=== PATIENT | female | born 1985 | race Caucasian/White ===

== ENCOUNTER 2016-03-03 13:05 | Inpatient (IN) | payer MEDICAID ==
[2016-03-03 14:35] LABS: AUTOMATED BASOPHIL 0.5 % (0-2); AUTOMATED LYMPH 7.9 % (17-44); AUTOMATED MONOCYTE 9.9 % (3-10); AUTOMATED NEUTROPHIL 81.7 % (45-76); MPV 9.2 fL (7.4-10.4)
[2016-03-03 14:44] LABS: LEUKOCYTES/URINE NEG (NEGATIVE); NITRITE/URINE NEG (NEGATIVE); URINE OCCULT BLOOD NEG (NEG/TRACE); WBC/URINE 0-2 (0-5)
[2016-03-03 14:47] LABS: BLOOD UREA NITROGEN 13 MG/DL (7-17); CALCIUM 9.4 MG/DL (8.4-10.2); CALCULATED OSMOLALITY 284 MOs/Kg (270-290); CHLORIDE 101 mEq/L (98-107); SODIUM LEVEL 138 mEq/L (137-146)
[2016-03-03 15:07] LABS: GLUCOSE 422 MG/DL (70-99)
[2016-03-03] MEDS ORDERED: NS 1,000 ML IV ONE ×2 (15:10→16:03)
[2016-03-03] MEDS ORDERED: REGULAR INSULIN 100 UNITS/ML - 3 ML VIAL IV ONE (15:10)
--- NOTE | 2016-03-03 15:12 | EDPRACDOC ---
- History of Present Illness HPI: MD NOTE SEEN AND EXAMINED; OLD RECORDS REVIEWED. IVF AND INSULIN DRIP STARTED. CXR ADDED. DR. DE LA CRUZ NOTIFIED FOR ADMISSION <Jere Martinez - Last Filed: 03/03/16 16:10> - General Information Information Source: Patient Mode Of Arrival: Car - History of Present Illness Onset: yesterday HPI: PT STATES HER DAUGHTERS HAVE BEEN SICK WITH N/V/D AND APPROX 1-2 DAYS SHE DEVELOPED IT WELL AND NOTICED HER CBG WAS STAYING ELEVATED AND COULDNT GET IT TO GO DOWN WITH HER SLIDING SCALE INSULIN AT HOME. STATES STILL HAVING N/V. Symptoms Occured: Reports: Spontaneous Duration: Reports: Since Onset Emesis: Reports: Bilious Recent: Reports: None Pain Quality: Reports: Aching, Cramping Pain Severity: Moderate Pain Location: Reports: Diffuse History of: Reports: UTI (once) Associated Signs & Symptoms: Reports: Nausea, Vomiting, Diarrhea, Other ( ELEVATED GLUCOSE) Oral Intake: Decreased Urinary Output: Normal <Kathleen Wilhelm - Last Filed: 03/03/16 16:24> - General Information Chief Complaint: Nausea,Vomiting,Diarrhea Stated Complaint: N/V/D DIABETIC HYPERGLYCEMIC Time Seen by Provider: 03/03/16 15:10 Home Medications: Home Medications Insulin Aspart [Novolog] 10 units SQ .SSI TIDAC #5 pen 12/20/15 Insulin Detemir [Levemir] 25 units SQ HS 03/03/16 Allergies/Adverse Reactions: Allergies Allergy/AdvReac Type Severity Reaction Status Date / Time morphine Allergy RASH, Verified 03/03/16 14:05 SWELLING Penicillins Allergy SWELLING Verified 03/03/16 14:05 ED Past Medical History - History Reviewed Yes Nurses notes reviewed and agree except as marked Travel Outside of [place] in the Last 3 Months?: No - Patient Medical History Respiratory History: Reports: Asthma (inhaler use at home)Comment Only: Pneumonia (3-4 years ago) GI/ History: Reports: Urinary Tract Infection (once) Psychological History: Reports: Anxiety. Denies: Depression, Substance Use Disorder Systemic History: Reports: Diabetes (Type 1. Uses Levemir.), Hypothyroidism ( Very recently diagnosed with hypothyroidism by PCP. Has not yet filled Rx.). Denies: Cancer, Anemia, Lupus Surgical History: Reports: Other ( x2, rectal surgery age 18 to correct traumatic injury, recent TL.) - Family Medical History Reports: Hypertension (mothers), Diabetes (Multiple family members on both maternal and paternal side with DM), Cancer (Multiple family members with various cancers including both grandparents.), Cardiac Disorders (Father with NV.). Denies: Stroke - Social Medical History Smoking Status: Heavy tobacco smoker (5 or more cigarettes/day or daily pipe/ cigar) Social History: Denies: Substance Use Disorder ETOH: None Substance Abuse: None Lives With: Other Lives In: Home <Kathleen Wilhelm - Last Filed: 03/03/16 16:24> EDM Review of Systems - Review of Systems ROS Negative Except as Marked: Yes All systems reviewed and were negative except as marked Constitutional: Weakness. negative: Chills, Fever, Fatigue, Loss of Appetite Eyes: No Symptoms Reported. negative: Redness, Blurred Vision, Double Vision, Discharge, Pain, Light Sensitive, Photophobia Ears: No Symptoms Reported. negative: Pain, Hearing Loss, Drainage, Ear Pulling Throat: No Symptoms Reported. negative: Pain, Swelling Nose: No Symptoms Reported. negative: Congestion, Bleeding, Discharge, Injection, Swelling, Deformity, Ecchymosis, Tender, Abrasion, Laceration Mouth: Dry Mouth. negative: Pain, Drooling Respiratory: No Symptoms Reported. negative: Cough, Brassy Cough, Barky Cough, Shortness of Breath, Wheezing, Hemoptysis Cardiovascular: No Symptoms Reported. negative: Chest Pain, Palpitations, Syncope, Edema, Orthopnea, PND, Skin Mottling, Cyanosis Gastrointestinal: Pain. negative: Constipation, Diarrhea, Formula Intolerance, Melena, Nausea, Vomiting Genitourinary: Frequency, Urgency to urinate. negative: Bleeding, Dysuria, Discharge, Hematuria, , Testicular Pain Neurological: No Symptoms Reported. negative: Headache, Dizziness, Seizure, Numbness, Weakness, Speech Difficulty, Gait Difficulty Musculoskeletal: No Symptoms Reported. negative: Neck, Chestwall, Ribs, Back, Shoulder, Arm, Elbow, Forearm, Wrist, Hand, Pelvis, Hip, Femur, Knee, Leg, Ankle , Foot Integumentary: No Symptoms Reported. negative: Itching, Rash, Bruising, Wound Allergic/Immunologic: No Symptoms Reported. negative: Hives, Itching Hematologic: No Symptoms Reported. negative: Lymphadenopathy, Easy Bruising, Easy Bleeding Endocrine: No Symptoms Reported. negative: Weight Gain, Weight Loss Psychiatric: No Symptoms Reported. negative: Anxiety, Depression, Hallucinations, Insomnia, Suicidal <Kathleen Wilhelm - Last Filed: 03/03/16 16:24> - Physical Exam Last recorded Vital Signs: Last Vital Signs Temp 98.0 F 03/03/16 14:06 Pulse 118 03/03/16 14:06 Resp 22 03/03/16 14:06 BP 126/73 03/03/16 14:06 Pulse Ox 100 03/03/16 14:06 Oxygen Pulse Oxygen Saturation 100 O2 Device Room Air Oxygen Flow Rate Fraction of Inspired Oxygen ( FIO2) <Jere Martinez - Last Filed: 03/03/16 16:10> - Physical Exam Constitutional: No apparent distress, Alert (Awake) Oriented to: Time, Person, Place Last recorded Vital Signs: Last Vital Signs Temp 98.0 F 03/03/16 14:06 Pulse 118 03/03/16 14:06 Resp 22 03/03/16 14:06 BP 126/73 03/03/16 14:06 Pulse Ox 100 03/03/16 14:06 Oxygen Pulse Oxygen Saturation 100 O2 Device Room Air Oxygen Flow Rate Fraction of Inspired Oxygen ( FIO2) - HEENT Head: Normal ( normocephalic) Eye Exam: Normal (PERRL, EOMI, Sclera white) Oropharynx: Normal (Pharynx:Moist without exudate,Gums-no swelling) Tympanic Membrane: Normal ENT EAC: Normal TMJ: Normal Nose: No Symptoms Reported (septum midline) Neck: Normal (FROM, trachea at midline) - Respiratory/Cardiovascular Respiratory: Normal - CTA (BBS clear to auscultation without adventitious sounds ) Cardiovascular: Normal (RRR without murmur, gallop or rub) - GI Auscultation: Normal (NABS) Palpation: Normal (Soft,No rebound or guarding, non distended) Tenderness: Diffuse, Mild Shields's Sign: Negative - Bladder: Normal - Musculoskeletal Back: Normal (Non-Tender) Extremities: Normal (Normal tone, Pulses 2+ No cyanosis or edema, FROM) - Integumentary Skin: Normal, Warm, Dry Lymphatics: Normal (no adenopathy) - Neurologic Memory Impaired: Normal Motor Function: Normal (Normal tone, Pulses 2+ No cyanosis or edema, FROM) Cranial Nerve: Normal (CN II-X11 intact sensation, strength 5/5) Cerebellar: Normal Mood Description: Normal Perception: Normal <Kathleen Wilhelm - Last Filed: 03/03/16 16:24> - Results 03/03/16 14:15 03/03/16 14:15 WBC 10.2 xk/uL (3.8-10.8) 03/03/16 14:15 RBC 5.48 xM/uL (4.20-5.40) H 03/03/16 14:15 Hgb 16.1 g/dL (12.0-16.0) H 03/03/16 14:15 Hct 49.3 % (36-47) H 03/03/16 14:15 MCV 90 fL (81-99) 03/03/16 14:15 MCH 29.3 pg (27-32) 03/03/16 14:15 MCHC 32.6 g/dl (33-36) L 03/03/16 14:15 RDW 13.1 % (11.5-14.5) 03/03/16 14:15 Plt Count 277 xk/uL (130-400) 03/03/16 14:15 MPV 9.2 fL (7.4-10.4) 03/03/16 14:15 Neut % (Auto) 81.7 % (45-76) H 03/03/16 14:15 Lymph % (Auto) 7.9 % (17-44) L 03/03/16 14:15 [place] % (Auto) 9.9 % (3-10) 03/03/16 14:15 Eos % (Auto) 0.0 % (0-5) 03/03/16 14:15 Baso % (Auto) 0.5 % (0-2) 03/03/16 14:15 Absolute Neuts (auto) 8.26 xk/uL (1.7-8.2) H 03/03/16 14:15 Absolute Lymphs (auto) 0.71 xk/uL (0.65-4.75) 03/03/16 14:15 Puncture Site Right radial 03/03/16 15:28 pH 7.070 pH UNITS (7.35-7.45) L* 03/03/16 15:28 pCO2 < 19.0 mmHg (35-45) L* 03/03/16 15:28 pO2 126.0 mmHg (80-100) H 03/03/16 15:28 FiO2 % 21% 03/03/16 15:28 Specimen Drawn By Roude 03/03/16 15:28 Sodium 138 mEq/L (137-146) 03/03/16 14:15 Potassium 4.4 mEq/L (3.5-5.1) 03/03/16 14:15 Chloride 101 mEq/L (98-107) 03/03/16 14:15 Carbon Dioxide 6 mMOL/L (22-33) L* 03/03/16 14:15 Anion Gap 35 mEq/L (8-16) H 03/03/16 14:15 BUN 13 MG/DL (7-17) 03/03/16 14:15 Creatinine 0.70 MG/DL (0.52-1.04) 03/03/16 14:15 Estimated GFR (MDRD) > 60 mL/min (>=60) 03/03/16 14:15 Glucose 422 MG/DL (70-99) H* 03/03/16 14:15 POC Capillary Glucose 399 MG/DL (70-99) H 03/03/16 14:11 Calculated Osmolality 284 MOs/Kg (270-290) 03/03/16 14:15 Lactic Acid 1.7 mEq/L (0.7-2.1) 03/03/16 15:30 Calcium 9.4 MG/DL (8.4-10.2) 03/03/16 14:15 Total Bilirubin 0.9 MG/DL (0.2-1.3) 03/03/16 14:15 AST 27 IU/L (14-36) 03/03/16 14:15 ALT 36 IU/L (9-52) 03/03/16 14:15 Alkaline Phosphatase 124 IU/L (38-126) 03/03/16 14:15 Ammonia < 9.0 umol/L (9.0-30.0) L 03/03/16 14:15 Total Protein 8.0 G/DL (6.3-8.2) 03/03/16 14:15 Albumin 4.7 G/DL (3.5-5.0) 03/03/16 14:15 Urine Color Yellow 03/03/16 14:15 Urine Clarity Clear 03/03/16 14:15 Urine pH 6.0 (5.0-8.0) 03/03/16 14:15 Ur Specific [place] 1.030 (1.003-1.035) 03/03/16 14:15 Urine Protein 2+ (NEG/TRACE) H 03/03/16 14:15 Urine Glucose (UA) 3+ (NEGATIVE) H 03/03/16 14:15 Urine Ketones 3+ (NEGATIVE) H 03/03/16 14:15 Urine Occult Blood Neg (NEG/TRACE) 03/03/16 14:15 Urine Nitrite Neg (NEGATIVE) 03/03/16 14:15 Urine Bilirubin Neg (NEGATIVE) 03/03/16 14:15 Urine Urobilinogen <2.0 MG/DL (0-1) 03/03/16 14:15 Ur Leukocyte Esterase Neg (NEGATIVE) 03/03/16 14:15 Urine RBC 2-5 (0-5) 03/03/16 14:15 Urine WBC 0-2 (0-5) 03/03/16 14:15 Ur Epithelial Cells 2+ 03/03/16 14:15 Urine Bacteria Few (NEG/FEW) 03/03/16 14:15 Urine Mucus Occ (NEG/OCC) 03/03/16 14:15 Urine Yeast Few (NONE) H 03/03/16 14:15 Urine Test Neg (NEGATIVE) 03/03/16 14:15 Lab Results 03/03/16 03/03/16 03/03/16 15:30 15:28 14:15 WBC RBC Hgb Hct MCV MCH MCHC RDW Plt Count MPV Neut % (Auto) Lymph % (Auto) [place] % (Auto) Eos % (Auto) Baso % (Auto) Absolute Neuts (auto) Absolute Lymphs (auto) Puncture Site Right radial pH 7.070 L* pCO2 < 19.0 L* pO2 126.0 H FiO2 % 21% Specimen Drawn By Roude Sodium Potassium Chloride Carbon Dioxide Anion Gap BUN Creatinine Estimated GFR (MDRD) Glucose POC Capillary Glucose Calculated Osmolality Lactic Acid 1.7 Calcium Total Bilirubin AST ALT Alkaline Phosphatase Ammonia Total Protein Albumin Urine Color Urine Clarity Urine pH Ur Specific [place] Urine Protein Urine Glucose (UA) Urine Ketones Urine Occult Blood Urine Nitrite Urine Bilirubin Urine Urobilinogen Ur Leukocyte Esterase Urine RBC Urine WBC Ur Epithelial Cells Urine Bacteria Urine Mucus Urine Yeast Urine Test Neg 03/03/16 03/03/16 03/03/16 14:15 14:15 14:15 WBC 10.2 RBC 5.48 H Hgb 16.1 H Hct 49.3 H MCV 90 MCH 29.3 MCHC 32.6 L RDW 13.1 Plt Count 277 MPV 9.2 Neut % (Auto) 81.7 H Lymph % (Auto) 7.9 L [place] % (Auto) 9.9 Eos % (Auto) 0.0 Baso % (Auto) 0.5 Absolute Neuts (auto) 8.26 H Absolute Lymphs (auto) 0.71 Puncture Site pH pCO2 pO2 FiO2 % Specimen Drawn By Sodium 138 Potassium 4.4 Chloride 101 Carbon Dioxide 6 L* Anion Gap 35 H BUN 13 Creatinine 0.70 Estimated GFR (MDRD) > 60 Glucose 422 H* POC Capillary Glucose Calculated Osmolality 284 Lactic Acid Calcium 9.4 Total Bilirubin 0.9 AST 27 ALT 36 Alkaline Phosphatase 124 Ammonia < 9.0 L Total Protein 8.0 Albumin 4.7 Urine Color Urine Clarity Urine pH Ur Specific [place] Urine Protein Urine Glucose (UA) Urine Ketones Urine Occult Blood Urine Nitrite Urine Bilirubin Urine Urobilinogen Ur Leukocyte Esterase Urine RBC Urine WBC Ur Epithelial Cells Urine Bacteria Urine Mucus Urine Yeast Urine Test 03/03/16 03/03/16 14:15 14:11 WBC RBC Hgb Hct MCV MCH MCHC RDW Plt Count MPV Neut % (Auto) Lymph % (Auto) [place] % (Auto) Eos % (Auto) Baso % (Auto) Absolute Neuts (auto) Absolute Lymphs (auto) Puncture Site pH pCO2 pO2 FiO2 % Specimen Drawn By Sodium Potassium Chloride Carbon Dioxide Anion Gap BUN Creatinine Estimated GFR (MDRD) Glucose POC Capillary Glucose 399 H Calculated Osmolality Lactic Acid Calcium Total Bilirubin AST ALT Alkaline Phosphatase Ammonia Total Protein Albumin Urine Color Yellow Urine Clarity Clear Urine pH 6.0 Ur Specific [place] 1.030 Urine Protein 2+ H Urine Glucose (UA) 3+ H Urine Ketones 3+ H Urine Occult Blood Neg Urine Nitrite Neg Urine Bilirubin Neg Urine Urobilinogen <2.0 Ur Leukocyte Esterase Neg Urine RBC 2-5 Urine WBC 0-2 Ur Epithelial Cells 2+ Urine Bacteria Few Urine Mucus Occ Urine Yeast Few H Urine Test <Jere Martinez - Last Filed: 03/03/16 16:10> - Differential Diagnosis Diarrhea Viral, Food poisoning, Gastroenteritis, Urinary tract infection, Other (SEPSIS, DKA) - Results 03/03/16 14:15 03/03/16 14:15 WBC 10.2 xk/uL (3.8-10.8) 03/03/16 14:15 RBC 5.48 xM/uL (4.20-5.40) H 03/03/16 14:15 Hgb 16.1 g/dL (12.0-16.0) H 03/03/16 14:15 Hct 49.3 % (36-47) H 03/03/16 14:15 MCV 90 fL (81-99) 03/03/16 14:15 MCH 29.3 pg (27-32) 03/03/16 14:15 MCHC 32.6 g/dl (33-36) L 03/03/16 14:15 RDW 13.1 % (11.5-14.5) 03/03/16 14:15 Plt Count 277 xk/uL (130-400) 03/03/16 14:15 MPV 9.2 fL (7.4-10.4) 03/03/16 14:15 Neut % (Auto) 81.7 % (45-76) H 03/03/16 14:15 Lymph % (Auto) 7.9 % (17-44) L 03/03/16 14:15 [place] % (Auto) 9.9 % (3-10) 03/03/16 14:15 Eos % (Auto) 0.0 % (0-5) 03/03/16 14:15 Baso % (Auto) 0.5 % (0-2) 03/03/16 14:15 Absolute Neuts (auto) 8.26 xk/uL (1.7-8.2) H 03/03/16 14:15 Absolute Lymphs (auto) 0.71 xk/uL (0.65-4.75) 03/03/16 14:15 Sodium 138 mEq/L (137-146) 03/03/16 14:15 Potassium 4.4 mEq/L (3.5-5.1) 03/03/16 14:15 Chloride 101 mEq/L (98-107) 03/03/16 14:15 Carbon Dioxide 6 mMOL/L (22-33) L* 03/03/16 14:15 Anion Gap 35 mEq/L (8-16) H 03/03/16 14:15 BUN 13 MG/DL (7-17) 03/03/16 14:15 Creatinine 0.70 MG/DL (0.52-1.04) 03/03/16 14:15 Estimated GFR (MDRD) > 60 mL/min (>=60) 03/03/16 14:15 Glucose 422 MG/DL (70-99) H* 03/03/16 14:15 POC Capillary Glucose 399 MG/DL (70-99) H 03/03/16 14:11 Calculated Osmolality 284 MOs/Kg (270-290) 03/03/16 14:15 Calcium 9.4 MG/DL (8.4-10.2) 03/03/16 14:15 Total Bilirubin 0.9 MG/DL (0.2-1.3) 03/03/16 14:15 AST 27 IU/L (14-36) 03/03/16 14:15 ALT 36 IU/L (9-52) 03/03/16 14:15 Alkaline Phosphatase 124 IU/L (38-126) 03/03/16 14:15 Ammonia < 9.0 umol/L (9.0-30.0) L 03/03/16 14:15 Total Protein 8.0 G/DL (6.3-8.2) 03/03/16 14:15 Albumin 4.7 G/DL (3.5-5.0) 03/03/16 14:15 Urine Color Yellow 03/03/16 14:15 Urine Clarity Clear 03/03/16 14:15 Urine pH 6.0 (5.0-8.0) 03/03/16 14:15 Ur Specific [place] 1.030 (1.003-1.035) 03/03/16 14:15 Urine Protein 2+ (NEG/TRACE) H 03/03/16 14:15 Urine Glucose (UA) 3+ (NEGATIVE) H 03/03/16 14:15 Urine Ketones 3+ (NEGATIVE) H 03/03/16 14:15 Urine Occult Blood Neg (NEG/TRACE) 03/03/16 14:15 Urine Nitrite Neg (NEGATIVE) 03/03/16 14:15 Urine Bilirubin Neg (NEGATIVE) 03/03/16 14:15 Urine Urobilinogen <2.0 MG/DL (0-1) 03/03/16 14:15 Ur Leukocyte Esterase Neg (NEGATIVE) 03/03/16 14:15 Urine RBC 2-5 (0-5) 03/03/16 14:15 Urine WBC 0-2 (0-5) 03/03/16 14:15 Ur Epithelial Cells 2+ 03/03/16 14:15 Urine Bacteria Few (NEG/FEW) 03/03/16 14:15 Urine Mucus Occ (NEG/OCC) 03/03/16 14:15 Urine Yeast Few (NONE) H 03/03/16 14:15 Urine Test Neg (NEGATIVE) 03/03/16 14:15 Lab Results 03/03/16 03/03/16 03/03/16 14:15 14:15 14:15 WBC 10.2 RBC 5.48 H Hgb 16.1 H Hct 49.3 H MCV 90 MCH 29.3 MCHC 32.6 L RDW 13.1 Plt Count 277 MPV 9.2 Neut % (Auto) 81.7 H Lymph % (Auto) 7.9 L [place] % (Auto) 9.9 Eos % (Auto) 0.0 Baso % (Auto) 0.5 Absolute Neuts (auto) 8.26 H Absolute Lymphs (auto) 0.71 Sodium Potassium Chloride Carbon Dioxide Anion Gap BUN Creatinine Estimated GFR (MDRD) Glucose POC Capillary Glucose Calculated Osmolality Calcium Total Bilirubin AST ALT Alkaline Phosphatase Ammonia < 9.0 L Total Protein Albumin Urine Color Urine Clarity Urine pH Ur Specific [place] Urine Protein Urine Glucose (UA) Urine Ketones Urine Occult Blood Urine Nitrite Urine Bilirubin Urine Urobilinogen Ur Leukocyte Esterase Urine RBC Urine WBC Ur Epithelial Cells Urine Bacteria Urine Mucus Urine Yeast Urine Test Neg 03/03/16 03/03/16 03/03/16 14:15 14:15 14:11 WBC RBC Hgb Hct MCV MCH MCHC RDW Plt Count MPV Neut % (Auto) Lymph % (Auto) [place] % (Auto) Eos % (Auto) Baso % (Auto) Absolute Neuts (auto) Absolute Lymphs (auto) Sodium 138 Potassium 4.4 Chloride 101 Carbon Dioxide 6 L* Anion Gap 35 H BUN 13 Creatinine 0.70 Estimated GFR (MDRD) > 60 Glucose 422 H* POC Capillary Glucose 399 H Calculated Osmolality 284 Calcium 9.4 Total Bilirubin 0.9 AST 27 ALT 36 Alkaline Phosphatase 124 Ammonia Total Protein 8.0 Albumin 4.7 Urine Color Yellow Urine Clarity Clear Urine pH 6.0 Ur Specific [place] 1.030 Urine Protein 2+ H Urine Glucose (UA) 3+ H Urine Ketones 3+ H Urine Occult Blood Neg Urine Nitrite Neg Urine Bilirubin Neg Urine Urobilinogen <2.0 Ur Leukocyte Esterase Neg Urine RBC 2-5 Urine WBC 0-2 Ur Epithelial Cells 2+ Urine Bacteria Few Urine Mucus Occ Urine Yeast Few H Urine Test - EKG EKG #1 EKG Time: 15:55 -: Yes EKG interpreted by me Rate: bpm: 111 [place]: Normal Rhythm: ST Block: None Hypertrophy: None ST: Nonsp <Kathleen Wilhelm - Last Filed: 03/03/16 16:24> ED Critical Care Note - Critical Care Note Total Time (mins): 35 <Jere Martinez - Last Filed: 03/03/16 16:10> <Jere Martinez - Last Filed: 03/03/16 16:10> - Departure Education/Counseling Given To: Patient Education/Counseling Given Regarding: Diagnosis, Treatment, Prognosis, Follow Up Decision to Admit Time: 16:23 Decision to admit date: 03/03/16 Decision to admit: from ED - Physician Consulted Hospitalist Time Called: 16:23 Provider Called: Tom De La Cruz <Kathleen Wilhelm - Last Filed: 03/03/16 16:24> - Departure Condition: Serious Final Diagnosis: Nausea and vomiting, Dehydration Diabetic ketoacidosis Qualifiers: Diabetes mellitus type: due to underlying condition Diabetes mellitus complication detail: without coma Qualified Code(s): E08.10 - Diabetes mellitus due to underlying condition with ketoacidosis without coma Instructions: Managing Diabetes During Sick Days (ED), Diabetes and Exercise Referrals: Samy Stern MD [Primary Care Provider] - One Week Forms: Patient Discharge Instructions, ED Discharge Instructions
[2016-03-03] MEDS: NS 1,000 ML IV SCH ×2 (15:19→17:30)
[2016-03-03] MEDS ORDERED: HYDROmorphone 1 MG INJECTION IV ONE (15:29)
[2016-03-03] MEDS ORDERED: LORAZEPAM 2 MG/ML VIAL IV ONE (15:29)
[2016-03-03] MEDS ORDERED: ONDANSETRON HCL 4 MG/2 ML VIAL IV ONE (15:29)
[2016-03-03 15:34] LABS: ABG Draw Site Right Radial; ALLEN'S TEST PASS; PCO2 < 19.0 mmHg (35-45)
[2016-03-03] MEDS: Insulin, Regular 100 UNITS in NS 99 ML IV SCH ×2 (16:04)
[2016-03-03] MEDS ORDERED: SIMETHICONE 80 MG TAB PO PRN (16:47)
[2016-03-03] MEDS ORDERED: ONDANSETRON HCL 4 MG/2 ML VIAL IV PRN (16:47)
[2016-03-03] MEDS ORDERED: TEMAZEPAM 15 MG CAP PO PRN (16:47)
[2016-03-03] MEDS ORDERED: BENZONATATE 100 MG PERLES PO PRN (16:47)
[2016-03-03] MEDS ORDERED: DOCUSATE-SENNA CONCENTRATE TAB PO PRN (16:47)
[2016-03-03] MEDS ORDERED: METOCLOPRAMIDE 10 MG/2 ML VIAL IV PRN (16:47)
[2016-03-03] MEDS ORDERED: DEXTROSE 25 GM/50 ML PFS IV PRN (16:47)
[2016-03-03] MEDS ORDERED: ACETAMINOPHEN 325 MG/TAB TABLET PO PRN (16:47)
[2016-03-03] MEDS ORDERED: ACETAMINOPHEN 650 MG SUPP PR PRN (16:47)
[2016-03-03] MEDS ORDERED: Insulin, Regular 100 UNITS in NS 99 ML IV SCH ×2 (17:00)
[2016-03-03] MEDS ORDERED: D5W/NS/KCl 20 mEq 1,000 ML IV SCH (17:00)
[2016-03-03] MEDS ORDERED: REGULAR INSULIN 100 UNITS/ML - 3 ML VIAL SQ SCH (17:00)
[2016-03-03] MEDS ORDERED: NS/KCl 20 mEq 1,000 ML IV SCH (17:00)
[2016-03-03] MEDS ORDERED: DKA ELECTROLYTE PROTOCOL SCH (17:00)
[2016-03-03] MEDS ORDERED: NS 1,000 ML IV SCH (17:00)
--- NOTE | 2016-03-03 17:24 | DIRPT ---
CLINICAL DATA: Shortness of breath and cough for 1 week. EXAM: CHEST 2 VIEW COMPARISON: Chest radiograph 09/23/2015. FINDINGS: Stable cardiac mediastinal contours. No consolidative pulmonary opacities. No pleural effusion or pneumothorax. Regional skeleton is unremarkable. IMPRESSION: No active cardiopulmonary disease. Electronically Signed By: Quinn Grider M.D. On: 03/03/2016 17:21
[2016-03-03 17:44] LABS: LEUKOCYTES/URINE NEG (NEGATIVE); NITRITE/URINE NEG (NEGATIVE); URINE OCCULT BLOOD 1+ (NEG/TRACE); WBC/URINE 0-2 (0-5)
[2016-03-03 17:54] LABS: BLOOD UREA NITROGEN 12 MG/DL (7-17); CALCIUM 8.2 MG/DL (8.4-10.2); CALCULATED OSMOLALITY 276 MOs/Kg (270-290); CHLORIDE 106 mEq/L (98-107); GLUCOSE 244 MG/DL (70-99); SODIUM LEVEL 139 mEq/L (137-146)
[2016-03-03] MEDS: ENOXAPARIN 40 MG/0.4 ML PFS SQ SCH (18:40)
--- NOTE | 2016-03-03 19:18 | HISTPHYS ---
- Chief Complaint nausea & vomiting - History of Present Illness Fany Trevino is a 30 year old woman with type 1 diabetes mellitus who presents with a two day history of nausea and vomiting. She states that her children have been sick recently with viral gastroenteritis type complaints, and of course, she has been caring for them. They seemed to recover after 24 hours, and she was hoping she would also, but instead she continued to vomit. She omitted her insulin because she was unable to eat or drink anything, and when she arrived to the ED today, her blood sugar was 422 with a pH of 7.07 and a serum bicarb level of 6. She is admitted for treatment of diabetic ketoacidosis. - Medical History Cardiac History: Reports: No Significant History Respiratory History: Reports: Asthma GI/ History: Reports: Urinary Tract Infection, Gastroesophageal Reflux Musculoskeletal History: Reports: No Significant History Systemic History: Reports: Diabetes, Hypothyroidism Neurological History: Reports: No Significant History Psychological History: Reports: Anxiety. Denies: Depression - Surgical History Reports: Other ( x2, rectal surgery age 18 to correct traumatic injury , recent TL.) - Medictions/Allergies Allergies morphine Allergy (Verified 03/03/16 14:05) RASH, SWELLING Penicillins Allergy (Verified 03/03/16 14:05) SWELLING Current Medication List: Reviewed Home Medications Insulin Aspart [Novolog] 10 units SQ .SSI TIDAC #5 pen 12/20/15 Insulin Detemir [Levemir] 25 units SQ HS 03/03/16 - Family History Reports: Hypertension (mothers), Diabetes (Multiple family members on both maternal and paternal side with DM), Cancer (Multiple family members with various cancers including both grandparents.), Cardiac Disorders (Father with [place].). Denies: Stroke - Social History Travel Outside of [place] in the Last 3 Months?: No Lives: With Family Smoking Status: Heavy tobacco smoker (5 or more cigarettes/day or daily pipe/ cigar) Social History: Denies: Alcohol Use - Review of Systems Constitutional: Fatigue, Loss of Appetite, Weakness, Weight loss Eyes: Blurred Vision Ears: No Symptoms Reported Nose: No Symptoms Reported Mouth: Dry Mouth, Poor Dentition Throat/Neck: No Symptoms Reported Respiratory: No Symptoms Reported Cardiovascular: Palpitations Gastrointestinal: Nausea, Vomiting, Heartburn Genitourinary: Frequency. negative: Dysuria Neurological: Dizziness, Headache, Numbness, Weakness, Memory Changes Musculoskeletal:: No Symptoms Reported Integumentary: No Symptoms Reported Allergic/Immunologic: No Symptoms Reported Hematologic: Anemia Endocrine: Weight Loss, Excessive Thirst, Polyuria, Diabetes Psychiatric: Anxiety - Physical Exam Vital Signs: Initial Vitals Temperature 98.0 F 03/03/16 14:06 Pulse Rate 118 03/03/16 14:06 Respiratory Rate 22 03/03/16 14:06 Blood Pressure 126/73 03/03/16 14:06 Pulse Oxygen Saturation 100 03/03/16 14:06 Constitutional: Alert, Decreased Consciousness, Somnolent, Other (acutely ill appearing) Oriented to: Time, Person, Place - HEENT Head: Normal Eye: Normal (PERRL: EOMI), Conjunctival Injection Oropharynx: Membranes Dry, Red. negative: Exudate Tympanic Membrane: Normal ENT EAC: negative: Cerumen Nose: No Symptoms Reported Respiratory: Normal - CTA, Diminished, Tachypnea Cardiovascular: Tachycardia - GI Auscultation: Normal Palpation: Normal (soft, nondistended, no mass). negative: Enlarged liver, Enlarged spleen, Fluid Wave Tenderness: Non tender Shields's Sign: Negative Rectal Exam: Deferred - Musculoskeletal Back: Normal, No Palpable Step-off. negative: CVA Tenderness Extremities: Normal, Pedal Pulse (normal), Radial Pulse (normal). negative: Clubbing, Cyanosis, Edema Spine: non-tender, normal alignment, normal inspection - Integumentary Skin: Hot, Dry, Flushed Lymphatics: Normal - Neurologic Memory Impaired: Normal Motor Function: Normal Cranial Nerve: Normal Cerebellar: Normal Mood Description: Appropriate, Depressed Thought: Coherent Perception: Normal - Focused CV Perfusion Exam Vital Signs: Last Vital Signs Temp 98.0 F 03/03/16 14:06 Pulse 103 03/03/16 17:37 Resp 33 H 03/03/16 17:37 BP 119/71 03/03/16 17:37 Pulse Ox 100 03/03/16 17:37 - Lab Results Laboratory Tests 03/03/16 03/03/16 03/03/16 14:15 14:15 14:15 WBC 10.2 Hgb 16.1 H Hct 49.3 H Plt Count 277 Neut % (Auto) 81.7 H Lymph % (Auto) 7.9 L pH pCO2 pO2 FiO2 % Sodium 138 Potassium 4.4 Chloride 101 Carbon Dioxide 6 L* Anion Gap 35 H BUN 13 Creatinine 0.70 Estimated GFR (MDRD) > 60 Glucose 422 H* Calculated Osmolality 284 Lactic Acid Calcium 9.4 Total Bilirubin 0.9 AST 27 ALT 36 Alkaline Phosphatase 124 Ammonia < 9.0 L Total Protein 8.0 Albumin 4.7 03/03/16 03/03/16 15:28 15:30 WBC Hgb Hct Plt Count Neut % (Auto) Lymph % (Auto) pH 7.070 L* pCO2 < 19.0 L* pO2 126.0 H FiO2 % 21% Sodium Potassium Chloride Carbon Dioxide Anion Gap BUN Creatinine Estimated GFR (MDRD) Glucose Calculated Osmolality Lactic Acid 1.7 Calcium Total Bilirubin AST ALT Alkaline Phosphatase Ammonia Total Protein Albumin - Diagnostic Findings CXR: FINDINGS: Stable cardiac mediastinal contours. No consolidative pulmonary opacities. No pleural effusion or pneumothorax. Regional skeleton is unremarkable. IMPRESSION: No active cardiopulmonary disease. Electronically Signed By: Quinn Grider M.D. On: 03/03/2016 17:21 - Assessment (1) Diabetic ketoacidosis E13.10 - OTH DIABETES MELLITUS WITH KETOACIDOSIS WITHOUT COMA Acute Qualifiers: Diabetes mellitus type: type 1 Diabetes mellitus complication detail: without coma Qualified Code(s): E10.10 - Type 1 diabetes mellitus with ketoacidosis without coma Admit to ICU, begin DKA protocol with insulin infusion and IV fluid hydration. Follow CBG q 1 hr and frequent labs to adjust insulin and fluids as needed. Add potassium when less than 5.3, change fluids to D5NS (with or without KCl) after serum or CBG is less than 250. Will continue insulin infusion until anion gap is normal. 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 Currently requiring insulin infusion for DKA. Recommended pre-prandial short-acting insulin: 10-10-14 units prior to bkft, lunch & supper respectively, in addition to Lantus or Levemir, once off of insulin infusion. (3) Dehydration E86.0 - DEHYDRATION Acute Present on Admission: Yes Hydrate aggressively with IV fluids. (4) Nausea and vomiting R11.2 - NAUSEA WITH VOMITING, UNSPECIFIED Acute Present on Admission: Yes Treat underlying illness with IV fluids; consider REglan if persists after AG is corrected. (5) Hypothyroidism E03.9 - HYPOTHYROIDISM, UNSPECIFIED Chronic Qualifiers: Hypothyroidism type: acquired Qualified Code(s): E03.9 - Hypothyroidism, unspecified Continue current dose of Synthroid. Observe for [id number] interactions. (6) Tobacco abuse Z72.0 - TOBACCO USE Chronic Present on Admission: Yes Counseled on importance of smoking cessation. Case Care Discussed with: Patient, Nursing Staff, Resource Management Total Time: 65 min Critical Care: Yes Couseling Time (>50% in counseling/coordination): No Code: 291
[2016-03-03 21:21] LABS: BLOOD UREA NITROGEN 10 MG/DL (7-17); CALCIUM 7.4 MG/DL (8.4-10.2); CALCULATED OSMOLALITY 266 MOs/Kg (270-290); CHLORIDE 109 mEq/L (98-107); GLUCOSE 121 MG/DL (70-99); SODIUM LEVEL 138 mEq/L (137-146)
[2016-03-03] MEDS: D5W/NS/KCl 20 mEq 1,000 ML IV SCH (21:21)
[2016-03-03] MEDS ORDERED: Vaccine Screening Complete SCH (23:00)
[2016-03-04 01:27] LABS: BLOOD UREA NITROGEN 8 MG/DL (7-17); CALCIUM 7.3 MG/DL (8.4-10.2); CALCULATED OSMOLALITY 261 MOs/Kg (270-290); CHLORIDE 108 mEq/L (98-107); GLUCOSE 154 MG/DL (70-99); SODIUM LEVEL 135 mEq/L (137-146)
[2016-03-04] MEDS: Insulin, Regular 100 UNITS in NS 99 ML IV SCH ×4 (02:08→11:00)
[2016-03-04] MEDS: D5W/NS/KCl 20 mEq 1,000 ML IV SCH ×2 (04:06→10:42)
[2016-03-04 06:37] LABS: BLOOD UREA NITROGEN 7 MG/DL (7-17); CALCIUM 7.4 MG/DL (8.4-10.2); CALCULATED OSMOLALITY 259 MOs/Kg (270-290); CHLORIDE 108 mEq/L (98-107); GLUCOSE 149 MG/DL (70-99); SODIUM LEVEL 134 mEq/L (137-146)
[2016-03-04 06:44] VITALS: BMI 24.7
[2016-03-04] MEDS ORDERED: KCL 20 mEq/100 ml Premix Run 20 MEQ/100 ML RTU IV ONE ×2 (08:00→11:00)
[2016-03-04] MEDS ORDERED: Magnesium Sulfate 2 gm/D5W 2 GM/50 ML RTU IV ONE (08:00)
[2016-03-04 09:58] LABS: BLOOD UREA NITROGEN 6 MG/DL (7-17); CALCIUM 7.6 MG/DL (8.4-10.2); CALCULATED OSMOLALITY 262 MOs/Kg (270-290); CHLORIDE 110 mEq/L (98-107); GLUCOSE 139 MG/DL (70-99); SODIUM LEVEL 136 mEq/L (137-146)
--- NOTE | 2016-03-04 11:49 | GENMEDPROG ---
Chief Complaint: DKA, N&V, DEHYDRATION, HYPOTHYROID Subjective Note: FEELING BETTER, NO LONGER NAUSEATED Notes Reviewed: Yes Events from last night noted and discussed with Clinical Staff Current Medication List: Reviewed - Physical Examination Vital Signs and I&O: Last Vital Signs Temp 98 F 03/04/16 10:00 Pulse 83 03/04/16 11:00 Resp 18 03/04/16 10:00 BP 101/56 L 03/04/16 11:00 Pulse Ox 94 03/04/16 10:00 Oxygen Pulse Oxygen Saturation 94 O2 Device Room Air Oxygen Flow Rate Fraction of Inspired Oxygen ( FIO2) Intake & Output 03/01/16 03/02/16 03/03/16 03/04/16 23:59 23:59 23:59 23:59 Intake Total 2668 1589 Output Total 30 600 Balance 2638 989 Patient's weight 78.154 kg General: Alert, Oriented x3, Cooperative HEENT: Normal, PERRLA, EOMI, Anicteric Sclera, Mucous membr. moist/pink Neck: Full range of motion, Normal Trachea alignment, Normal inspection, No Masses palpable Lymphatics: Normal Respiratory: Normal - CTA, Diminished, Tachypnea Cardiovascular: Regular rate and rhythm, Normal S1, Normal S2 GI: Normal bowel sounds, Soft, Non tender Extremities/Musculoskeletal: Normal pulses Skin: Warm,Dry and Intact, No rashes Neurological: Normal speech, Strength at 5/5 X4 ext, Normal tone, Cranial nerves 3-12 NL Psych/Mental Status: Appropriate, Normal Affect, Cooperative Lab/DI/Studies Reviewed: Laboratory Tests 03/04/16 03/04/16 08:51 09:41 Sodium 136 L Potassium 3.5 Chloride 110 H Carbon Dioxide 17 L Anion Gap 13 BUN 6 L Creatinine 0.40 L Estimated GFR (MDRD) > 60 Glucose 139 H POC Capillary Glucose 135 H Calculated Osmolality 262 L Calcium 7.6 L - Assessment (1) Diabetic ketoacidosis Acute E13.10 - OTH DIABETES MELLITUS WITH KETOACIDOSIS WITHOUT COMA Qualifiers: Diabetes mellitus type: type 1 Diabetes mellitus complication detail: without coma Qualified Code(s): E10.10 - Type 1 diabetes mellitus with ketoacidosis without coma Comment/Plan: Currently on DKA protocol with insulin infusion and IV fluid hydration. AG is nearly normal at last check 4 hr ago, next blood draw due now. Will stop insulin infusion and change to moderate dose SSI, check CBG ACHS. Begin home dose of insulin. (2) DM (diabetes mellitus), type 1, uncontrolled Acute E10.65 - TYPE 1 DIABETES MELLITUS WITH HYPERGLYCEMIA Qualifiers: Diabetes mellitus complication status: with hyperglycemia Qualified Code(s) : E10.65 - Type 1 diabetes mellitus with hyperglycemia Comment/Plan: Last HgA1c= 10.6 in December of this year. Resume home dose of insulin: 25 units of Levemir at HS and 10 units Reg prior to each meal. Reduce first dose of Levemir due to patient not having eaten much yet. (3) Dehydration Acute E86.0 - DEHYDRATION Comment/Plan: Hydrate aggressively with IV fluids. (4) Nausea and vomiting Acute R11.2 - NAUSEA WITH VOMITING, UNSPECIFIED Comment/Plan: Treat underlying illness with IV fluids; consider Reglan if persists after AG is corrected. (5) Hypothyroidism Chronic E03.9 - HYPOTHYROIDISM, UNSPECIFIED Qualifiers: Hypothyroidism type: acquired Qualified Code(s): E03.9 - Hypothyroidism, unspecified Comment/Plan: Continue current dose of Synthroid. Observe for szla-dc-lsac interactions. (6) Tobacco abuse Chronic Z72.0 - TOBACCO USE Comment/Plan: Counseled on importance of smoking cessation. - Plan Transfer to [facility].
[2016-03-04] MEDS ORDERED: DEXTROSE 25 GM/50 ML PFS IV PRN (12:52)
[2016-03-04] MEDS ORDERED: GLUCOSE (ORAL GEL) 15 GM TUBE PO PRN (12:52)
[2016-03-04] MEDS ORDERED: GLUCAGON 1 MG VIAL SQ PRN (12:52)
[2016-03-04 13:26] LABS: BLOOD UREA NITROGEN 5 MG/DL (7-17); CALCIUM 7.8 MG/DL (8.4-10.2); CALCULATED OSMOLALITY 259 MOs/Kg (270-290); CHLORIDE 109 mEq/L (98-107); GLUCOSE 136 MG/DL (70-99); SODIUM LEVEL 135 mEq/L (137-146)
[2016-03-04] MEDS ORDERED: INSULIN DETEMIR 100 UNITS/ML PEN SQ SCH ×2 (14:00→21:00)
[2016-03-04] MEDS: NS/KCl 20 mEq 1,000 ML IV SCH ×3 (14:53→22:03)
[2016-03-04] MEDS: REGULAR INSULIN 100 UNITS/ML - 3 ML VIAL SQ SCH ×3 (17:17→21:37)
[2016-03-04] MEDS: ENOXAPARIN 40 MG/0.4 ML PFS SQ SCH (17:18)
[2016-03-05] MEDS: NS/KCl 20 mEq 1,000 ML IV SCH ×3 (04:16→11:09)
[2016-03-05] MEDS: REGULAR INSULIN 100 UNITS/ML - 3 ML VIAL SQ SCH ×2 (05:19→09:47)
--- NOTE | 2016-03-05 09:17 | PCM.DCS92 ---
- Final/Secondary Discharge Diagnosis (1) Diabetic ketoacidosis Acute E13.10 - OTH DIABETES MELLITUS WITH KETOACIDOSIS WITHOUT COMA Present on Admission: Yes type 1 without coma E10.10 - Type 1 diabetes mellitus with ketoacidosis without coma Comment: Presented in DKA, with serum glucose in 400's, nauseated and vomiting, dehydrated. Has responded well to treatment. Acidosis is resolved, patient now well hydrated, tolerating diabetic diet. Has resumed home dose of insulin. (2) DM (diabetes mellitus), type 1, uncontrolled Acute E10.65 - TYPE 1 DIABETES MELLITUS WITH HYPERGLYCEMIA Present on Admission: Yes with hyperglycemia E10.65 - Type 1 diabetes mellitus with hyperglycemia Comment: Last HgA1c= 10.6 in December of this year. Resume home dose of insulin : 25 units of Levemir at HS and 10 units Reg prior to each meal. Reduce first dose of Levemir due to patient not having eaten much yet. (3) Dehydration Acute E86.0 - DEHYDRATION Present on Admission: Yes Comment: Hydrated aggressively with IV fluids. (4) Nausea and vomiting Acute R11.2 - NAUSEA WITH VOMITING, UNSPECIFIED Present on Admission: Yes Comment: Treated underlying illness with IV fluids, no longer nauseated. (5) Hypothyroidism Chronic E03.9 - HYPOTHYROIDISM, UNSPECIFIED acquired E03.9 - Hypothyroidism, unspecified Comment: Continue current dose of Synthroid. Observe for ngct-gq-lagf interactions. (6) Tobacco abuse Chronic Z72.0 - TOBACCO USE Present on Admission: Yes Comment: Counseled on importance of smoking cessation. Discharge Disposition: Home Discharge Condition: Improved Cognitive Discharge Status: Unimpaired Fuctional Discharge Status: Independent Forms: Patient Discharge Instructions, ED Discharge Instructions Physician Follow up/Referrals: Samy Stern MD [Primary Care Provider] - One Week Discharge Home Medication List Insulin Aspart [Novolog] 10 units SQ .SSI TIDAC #5 pen 12/20/15 [Rx Confirmed Last Taken 03/03/16] Insulin Detemir [Levemir] 25 units SQ HS 03/03/16 [History Confirmed 03/03/16 Last Taken 03/01/16] O2 Device: Room Air Diet at Discharge: Heart Healthy, Diabetic Activity: No Restrictions Call Office For: Worsening Symptoms Discontinue use of:: Alcohol, All Types of Tobacco - DC Summary Notes Hospital Course Note:: Discharge summary on patient named FANY TREVINO admitted to [facility] on 03/03/16 by Annette Nair MD. Date of discharge is []. Fany Trevino is a 30 year old woman with type 1 diabetes mellitus who presents with a two day history of nausea and vomiting. She states that her children have been sick recently with viral gastroenteritis type complaints, and of course, she has been caring for them. They seemed to recover after 24 hours, and she was hoping she would also, but instead she continued to vomit. She omitted her insulin because she was unable to eat or drink anything, and when she arrived to the ED today, her blood sugar was 422 with a pH of 7.07 and a serum bicarb level of 6. She is admitted for treatment of diabetic ketoacidosis. The patient was started on an insulin infusion with additional rapid infusion of IV fluids. After 24 hours her acidosis was corrected, and she was started back on a diabetic diet and her home insulin dose. She received only 20 units of Lantus at bedtime due to having eaten so little the first 24 hours, but we will discharge her on her previous dose of 25 units at HS and 10 units of Humalog prior to each meal. She is to follow-up with Dr. Cervantes in 1 week. Total Time: 35 min Code: 79033 (>30min.) - Physical Exam Vital Signs: Last Vital Signs Temp 97.6 F 03/05/16 07:31 Pulse 85 03/05/16 07:31 Resp 20 03/05/16 07:31 BP 107/59 L 03/05/16 06:00 Pulse Ox 97 03/04/16 14:00 Oxygen Pulse Oxygen Saturation 97 O2 Device Room Air Oxygen Flow Rate Fraction of Inspired Oxygen ( FIO2) Constitutional: No apparent distress, Alert, Well nourished, Well appearing Oriented to: Time, Person, Place - HEENT Head: Normal Eye: Normal (PERRL: EOMI) Oropharynx: Normal. negative: Exudate Tympanic Membrane: Normal ENT EAC: negative: Cerumen Nose: No Symptoms Reported - Respiratory/Cardiovascular Respiratory: Normal - CTA Cardiovascular: Normal - GI Auscultation: Normal Palpation: Normal (soft, nondistended, no mass). negative: Enlarged liver, Enlarged spleen, Fluid Wave Tenderness: Non tender Shields's Sign: Negative Rectal Exam: Deferred - Musculoskeletal Back: Normal, No Palpable Step-off. negative: CVA Tenderness Extremities: Normal, Pedal Pulse (normal), Radial Pulse (normal). negative: Clubbing, Cyanosis, Edema - Integumentary Skin: Warm, Dry Lymphatics: Normal - Neurologic Memory Impaired: Normal Motor Function: Normal Cranial Nerve: Normal Cerebellar: Normal Mood Description: Normal, Appropriate Thought: Coherent Perception: Normal
[2016-03-05 10:40] VITALS: BP 114/74; PULSE 82; TEMP 97.4
== END 2016-03-05 12:01 | disposition home or self-care (01) | DRG 639 ==
LOC: ED 13:05 → ICU 16:47
PROVIDERS: ADMIT Family Medicine; ATTEND Family Medicine
PROC: 039B3ZZ Drainage of Right Radial Artery, Percutaneous Approach (ICD-10-PCS; principal; 2016-03-03)
DX: E10.10 Type 1 diabetes mellitus with ketoacidosis without coma (principal); E03.9 Hypothyroidism, unspecified; E86.0 Dehydration; F17.210 Nicotine dependence, cigarettes, uncomplicated; Z88.0 Allergy status to penicillin; Z88.5 Allergy status to narcotic agent; Z79.4 Long term (current) use of insulin
CPT/HCPCS: 36415; 36600; 71020; 80048; 80053; 81001; 81025; 82140; 82803; 82962; 83605; 83735; 84100; 85025; 87040; 87086; 87641; 93005; 96361; 96372; 96375; 99284; J1170; J1650; J1815; J2060; J2405; J3475; J3480; J3490; J7030; J7040; J7070

== ENCOUNTER 2016-03-18 18:06 | Inpatient (IN) | payer MEDICAID ==
[2016-03-18] MEDS ORDERED: NS 1,000 ML IV ONE ×2 (18:53→18:54)
[2016-03-18] MEDS ORDERED: ONDANSETRON HCL 4 MG/2 ML VIAL IV ONE (18:53)
[2016-03-18 19:05] LABS: AUTOMATED BASOPHIL 0.6 % (0-2); AUTOMATED EOSINOPHIL 0.1 % (0-5); AUTOMATED LYMPH 17.9 % (17-44); AUTOMATED MONOCYTE 8.1 % (3-10); AUTOMATED NEUTROPHIL 73.3 % (45-76); MPV 9.3 fL (7.4-10.4)
[2016-03-18 19:15] LABS: BLOOD UREA NITROGEN 11 MG/DL (7-17); CALCIUM 9.2 MG/DL (8.4-10.2); CALCULATED OSMOLALITY 279 MOs/Kg (270-290); CHLORIDE 102 mEq/L (98-107); GLUCOSE 319 MG/DL (70-99); SODIUM LEVEL 139 mEq/L (137-146); TOTAL PROTEIN 9.2 G/DL (6.3-8.2)
[2016-03-18] MEDS ORDERED: HYDROmorphone 1 MG INJECTION IV ONE (19:23)
--- NOTE | 2016-03-18 19:31 | EDPRACDOC ---
- General Information Chief Complaint: Generalized Weakness Stated Complaint: HEADACHE VOMITING DIABETIC ACETONE ODOR Time Seen by Provider: 03/18/16 18:47 Information Source: Patient, Family Mode Of Arrival: Car Home Medications: Home Medications Insulin Aspart [Novolog] 10 units SQ .SSI TIDAC #5 pen 12/20/15 Insulin Detemir [Levemir] 25 units SQ HS 03/03/16 Allergies/Adverse Reactions: Allergies Allergy/AdvReac Type Severity Reaction Status Date / Time morphine Allergy RASH, Verified 03/03/16 14:05 SWELLING Penicillins Allergy SWELLING Verified 03/03/16 14:05 - History of Present Illness Onset: this am 1000 Exact Onset of Symptoms: Unknown HPI: PT SAID THAT SHE HAS NOT BEEN FEELING WELL ALL DAY. SHE IS A VERY BRITTLE DIABETIC AND DENIES SKIPPING ANY DOSES OF MEDS. THE PT WAS ADMITTED ON 03/03 FOR DKA. SHE WAS D/C'D ON 03/05. PT HAS BEEN VOMITING WELL. Symptoms Started: Reports: Suddenly Symptoms Description: Constant Weakness: Bilateral: Generalized Symptoms: Reports: Weak Relevant History of: Reports: DM Associated signs and symptoms:: Reports: Nausea, Vomiting ED Past Medical History - Patient Medical History Respiratory History: Reports: AsthmaComment Only: Pneumonia (3-4 years ago) GI/ History: Reports: Urinary Tract Infection, Gastroesophageal Reflux Psychological History: Reports: Depression, Anxiety. Denies: Substance Use Disorder Systemic History: Reports: Diabetes, Hypothyroidism. Denies: Cancer, Anemia, Lupus Surgical History: Reports: Other ( x2, rectal surgery age 18 to correct traumatic injury, recent TL.). Denies: Hysterectomy - Family Medical History Reports: Hypertension (mothers), Diabetes (Multiple family members on both maternal and paternal side with DM), Cancer (Multiple family members with various cancers including both grandparents.), Cardiac Disorders (Father with [place].). Denies: Stroke - Social Medical History Smoking Status: Light tobacco smoker (less than 5/day) Social History: Denies: Substance Use Disorder ETOH: None Substance Abuse: None Lives In: Home EDM Review of Systems - Review of Systems ROS Negative Except as Marked: Yes All systems reviewed and were negative except as marked Constitutional: Weakness Respiratory: Cough Gastrointestinal: Nausea, Vomiting - Physical Exam Constitutional: Distress Oriented to: Time, Person, Place Last recorded Vital Signs: Last Vital Signs Temp 97.4 F L 03/18/16 18:14 Pulse 128 H 03/18/16 19:00 Resp 22 03/18/16 19:00 BP 150/67 03/18/16 19:00 Pulse Ox 97 03/18/16 19:00 Oxygen Pulse Oxygen Saturation 97 O2 Device Room Air Oxygen Flow Rate Fraction of Inspired Oxygen ( FIO2) - HEENT Head: Normal ( normocephalic) Eye Exam: Normal (PERRL, EOMI, Sclera white) Oropharynx: Membranes Dry ENT EAC: Normal TMJ: Normal Nose: No Symptoms Reported (septum midline) Neck: Normal (FROM, trachea at midline) - Respiratory/Cardiovascular Respiratory: Accessory Muscle Use, Tachypnea Cardiovascular: Tachycardia - GI Auscultation: Normal (NABS) Palpation: Normal (Soft,No rebound or guarding, non distended) Tenderness: Non tender Shields's Sign: Negative - Musculoskeletal Back: Normal (Non-Tender) Extremities: Normal (Normal tone, Pulses 2+ No cyanosis or edema, FROM) - Integumentary Skin: Normal, Warm, Dry Lymphatics: Normal (no adenopathy) - Neurologic Memory Impaired: Normal Motor Function: Normal (Normal tone, Pulses 2+ No cyanosis or edema, FROM) Cranial Nerve: Normal (CN II-X11 intact sensation, strength 5/5) Cerebellar: Normal Mood Description: Anxious Perception: Normal - Results 03/18/16 18:30 03/18/16 18:30 WBC 13.6 xk/uL (3.8-10.8) H 03/18/16 18:30 RBC 5.90 xM/uL (4.20-5.40) H 03/18/16 18:30 Hgb 17.5 g/dL (12.0-16.0) H 03/18/16 18:30 Hct 52.2 % (36-47) H 03/18/16 18:30 MCV 89 fL (81-99) 03/18/16 18:30 MCH 29.7 pg (27-32) 03/18/16 18:30 MCHC 33.5 g/dl (33-36) 03/18/16 18:30 RDW 13.6 % (11.5-14.5) 03/18/16 18:30 Plt Count 356 xk/uL (130-400) 03/18/16 18:30 MPV 9.3 fL (7.4-10.4) 03/18/16 18:30 Neut % (Auto) 73.3 % (45-76) 03/18/16 18:30 Lymph % (Auto) 17.9 % (17-44) 03/18/16 18:30 Trigg % (Auto) 8.1 % (3-10) 03/18/16 18:30 Eos % (Auto) 0.1 % (0-5) 03/18/16 18:30 Baso % (Auto) 0.6 % (0-2) 03/18/16 18:30 Absolute Neuts (auto) 9.93 xk/uL (1.7-8.2) H 03/18/16 18:30 Absolute Lymphs (auto) 2.31 xk/uL (0.65-4.75) 03/18/16 18:30 Sodium 139 mEq/L (137-146) 03/18/16 18:30 Potassium 3.7 mEq/L (3.5-5.1) 03/18/16 18:30 Chloride 102 mEq/L (98-107) 03/18/16 18:30 Carbon Dioxide < 5 mMOL/L (22-33) L* 03/18/16 18:30 Anion Gap 36 mEq/L (8-16) H 03/18/16 18:30 BUN 11 MG/DL (7-17) 03/18/16 18:30 Creatinine 0.80 MG/DL (0.52-1.04) 03/18/16 18:30 Estimated GFR (MDRD) > 60 mL/min (>=60) 03/18/16 18:30 Glucose 319 MG/DL (70-99) H 03/18/16 18:30 POC Capillary Glucose 340 MG/DL (70-99) H 03/18/16 18:13 Calculated Osmolality 279 MOs/Kg (270-290) 03/18/16 18:30 Calcium 9.2 MG/DL (8.4-10.2) 03/18/16 18:30 Total Bilirubin 0.7 MG/DL (0.2-1.3) 03/18/16 18:30 AST 19 IU/L (14-36) 03/18/16 18:30 ALT 28 IU/L (9-52) 03/18/16 18:30 Alkaline Phosphatase 129 IU/L (38-126) H 03/18/16 18:30 Total Protein 9.2 G/DL (6.3-8.2) H 03/18/16 18:30 Albumin 5.1 G/DL (3.5-5.0) H 03/18/16 18:30 Urine Test Neg (NEGATIVE) 03/18/16 19:10 Lab Results 03/18/16 03/18/16 03/18/16 19:10 18:30 18:30 WBC 13.6 H RBC 5.90 H Hgb 17.5 H Hct 52.2 H MCV 89 MCH 29.7 MCHC 33.5 RDW 13.6 Plt Count 356 MPV 9.3 Neut % (Auto) 73.3 Lymph % (Auto) 17.9 Trigg % (Auto) 8.1 Eos % (Auto) 0.1 Baso % (Auto) 0.6 Absolute Neuts (auto) 9.93 H Absolute Lymphs (auto) 2.31 Sodium 139 Potassium 3.7 Chloride 102 Carbon Dioxide < 5 L* Anion Gap 36 H BUN 11 Creatinine 0.80 Estimated GFR (MDRD) > 60 Glucose 319 H POC Capillary Glucose Calculated Osmolality 279 Calcium 9.2 Total Bilirubin 0.7 AST 19 ALT 28 Alkaline Phosphatase 129 H Total Protein 9.2 H Albumin 5.1 H Urine Test Neg 03/18/16 18:13 WBC RBC Hgb Hct MCV MCH MCHC RDW Plt Count MPV Neut % (Auto) Lymph % (Auto) Trigg % (Auto) Eos % (Auto) Baso % (Auto) Absolute Neuts (auto) Absolute Lymphs (auto) Sodium Potassium Chloride Carbon Dioxide Anion Gap BUN Creatinine Estimated GFR (MDRD) Glucose POC Capillary Glucose 340 H Calculated Osmolality Calcium Total Bilirubin AST ALT Alkaline Phosphatase Total Protein Albumin Urine Test - EKG EKG #1 EKG Time: 18:20 -: Yes EKG interpreted by me Rate: bpm: 125 [place]: Normal Rhythm: ST Block: None Hypertrophy: None ST: Normal ED Critical Care Note - Critical Care Note Total Time (mins): 30 - Departure Yes I personally saw and evaluated the patient. Disposition: Admit IP To This Hospital Condition: Serious Final Diagnosis: DKA (diabetic ketoacidoses), Tobacco abuse, Migraine headache without aura, Dehydration Education/Counseling Given To: Patient Education/Counseling Given Regarding: Diagnosis, Treatment Decision to Admit Time: 19:34 Decision to admit date: 03/18/16 Decision to admit: from ED - Physician Consulted Hospitalist Provider Called: Andrade Brown
[2016-03-18 19:32] LABS: RBC/URINE 0-2 (0-5); WBC/URINE 0-2 (0-5)
[2016-03-18 19:34] LABS: LEUKOCYTES/URINE NEG (NEGATIVE); NITRITE/URINE NEG (NEGATIVE); URINE OCCULT BLOOD NEG (NEG/TRACE)
--- NOTE | 2016-03-18 19:55 | HISTPHYS ---
- Chief Complaint weakness - History of Present Illness PRIMARY CARE PROVIDER: Dr. Cervantes HPI: The patient is a 30 yo woman with severe type 2 diabetes with multiple episodes of DKA, who presents with weakness and not feeling well. The patient woke up this morning around 10:30 and started vomiting. Then had a tension headache that was severe. Started coughing. Ribs and sternum hurt with coughing and then felt like something popped in her ribs in the mid lateral chest and it is painful. Onset: today. Duration: intermittent. Location: pain in ribs laterally and lower sternum/upper epigastric area. Radiation: none. Character: rib pain is 5 now and previously 8-9. Sharp stabbing. Alleviated by: Nothing. Exacerbated by: Nothing. Associated Symptoms: Nausea, vomiting. Chills started today and did not stop, and were shaking chills. Nasal congestion. Lips dry and mouth cracked. Pain in forehead bilaterally. Photophobia. Headache started today, is bilateral frontal, started after vomiting, thought it was a migraine. Mild epigastric/lower sternum pain after coughing. Panic attacks earlier today, and had trouble breathing. Patient is very tearful, stating that she is trying to do everything right but she still ended up with DKA. Treatments: none at home except usual medications. Took insulin a little later than usual last night, but otherwise has maintained her schedule. Insulin: Levemir qhs. Novolog tid usually 20 units. No missed doses lately. - Medical History Respiratory History: Reports: AsthmaComment Only: Pneumonia (3-4 years ago) GI/ History: Reports: Urinary Tract Infection, Gastroesophageal Reflux Systemic History: Reports: Diabetes (TYPE 2 CONFIRMED but severe, on insulin, frequent DKA.), Hypothyroidism. Denies: Cancer, Anemia, Lupus Psychological History: Reports: Depression, Anxiety (with panic attacks). Denies: Substance Use Disorder - Surgical History Reports: Other ( x2, rectal surgery age 18 to correct traumatic injury , recent TL.). Denies: Hysterectomy - Medictions/Allergies Allergies morphine Allergy (Verified 03/03/16 14:05) RASH, SWELLING Penicillins Allergy (Verified 03/03/16 14:05) SWELLING Current Medication List: Reviewed Home Medications Insulin Aspart [Novolog] 10 units SQ .SSI TIDAC #5 pen 12/20/15 Insulin Detemir [Levemir] 25 units SQ HS 03/03/16 - Family History Reports: Hypertension (mothers), Diabetes (Multiple family members on both maternal and paternal side with DM), Cancer (Multiple family members with various cancers including both grandparents.), Cardiac Disorders (Father with DE.). Denies: Stroke - Social History Smoking Status: Light tobacco smoker (less than 5/day) (less than half ppd.) Social History: Denies: Alcohol Use, Substance Use Disorder - Review of Systems GENERAL: No Fever. Had chills. No diaphoresis. Positive for fatigue/malaise. HEENT: No ear pain or discharge. Nasal discharge and congestion but no bleeding. No throat pain or swelling. No eye pain or eye redness. Lips dry and mouth cracked. RESPIRATORY: No cough, wheezing, or shortness of breath. CARDIOVASCULAR: No chest pain or palpitations. GI: Has nausea, vomiting. Mild epigastric pain. No diarrhea, constipation, or bloody stool. NEUROLOGICAL: Has headache but no focal weakness. INTEGUMENT: no rashes, itching, or lesions. LYMPHATIC SYSTEM: no lymph node swelling or pain. MUSCULOSKELETAL: no pain or joint swelling. GENITOURINARY: No dysuria or hematuria. ENDOCRINE: Polyuria and polydipsia. HEME: No chronic anemia, bleeding, or easy bruising. - Physical Exam Vital Signs: Initial Vitals Temperature 97.4 F L 03/18/16 18:14 Pulse Rate 139 H 03/18/16 18:14 Respiratory Rate 28 H 03/18/16 18:14 Blood Pressure 150/80 03/18/16 18:14 Pulse Oxygen Saturation 99 03/18/16 18:14 Vital Signs - 24 hr 03/18/16 03/18/16 03/18/16 18:14 18:19 19:00 Temperature 97.4 F L Pulse Rate 139 H 128 H Respiratory 28 H 28 H 22 Rate Blood Pressure 150/80 150/67 Pulse Oxygen 99 97 Saturation Weight: 72.2 kg Height: 5 feet 10 inches BMI: 22.9 - Other Exam Other Exam Findings: GENERAL: Ill-appearing, well nourished, in acute distress. HEENT: Normocephalic, atraumatic; pupils equal and round. Nares patent, without discharge or bleeding. No oropharyngeal lesions or erythema. Mucous membranes are very dry. NECK: is supple, no masses, trachea midline. RESPIRATORY: Clear to auscultation bilaterally. Chest wall movements are symmetric. No use of accessory muscles to breathe. Minimal wheezing. No rales, rhonchi. CARDIOVASCULAR: Normal S1, S2. No murmurs, rubs, or gallops. PMI non-displaced. Carotids: no carotid bruits. Tachycardia. DP pulses 1+ bilaterally. GI: soft, nontender, non-distended, normal active bowel sounds. No hepatosplenomegaly. INTEGUMENT: Clean, dry, and intact. No rashes. No lesions. MUSCULOSKELETAL: Moving all extremities. No cyanosis. No clubbing. Edema: none bilaterally. NEUROLOGICAL: Cranial nerves 2-12 grossly intact. Motor 5/5 throughout. Reflexes : 2+ bilaterally. Babinski: toes downgoing bilaterally. Intact Finger to nose. Sensory grossly intact to light touch. Intact rapid alternating movements bilaterally. No pronator drift. PSYCHIATRIC: Fully oriented. Anxious affect. LYMPHATIC: No cervical lymphadenopathy. No supraclavicular lymphadenopathy. - Lab Results Laboratory Results - last 24 hr 03/18/16 03/18/16 03/18/16 18:13 18:30 18:30 WBC 13.6 H RBC 5.90 H Hgb 17.5 H Hct 52.2 H MCV 89 MCH 29.7 MCHC 33.5 RDW 13.6 Plt Count 356 MPV 9.3 Neut % (Auto) 73.3 Lymph % (Auto) 17.9 [place] % (Auto) 8.1 Eos % (Auto) 0.1 Baso % (Auto) 0.6 Absolute Neuts (auto) 9.93 H Absolute Lymphs (auto) 2.31 Sodium 139 Potassium 3.7 Chloride 102 Carbon Dioxide < 5 L* Anion Gap 36 H BUN 11 Creatinine 0.80 Estimated GFR (MDRD) > 60 Glucose 319 H POC Capillary Glucose 340 H Calculated Osmolality 279 Calcium 9.2 Total Bilirubin 0.7 AST 19 ALT 28 Alkaline Phosphatase 129 H Total Protein 9.2 H Albumin 5.1 H Urine Color Urine Clarity Urine pH Ur Specific [employer] Urine Protein Urine Glucose (UA) Urine Ketones Urine Occult Blood Urine Nitrite Urine Bilirubin Urine Urobilinogen Ur Leukocyte Esterase Urine RBC Urine WBC Ur Epithelial Cells Urine Bacteria Hyaline Casts Granular Casts Urine Mucus Urine Test 03/18/16 03/18/16 19:10 19:10 WBC RBC Hgb Hct MCV MCH MCHC RDW Plt Count MPV Neut % (Auto) Lymph % (Auto) [place] % (Auto) Eos % (Auto) Baso % (Auto) Absolute Neuts (auto) Absolute Lymphs (auto) Sodium Potassium Chloride Carbon Dioxide Anion Gap BUN Creatinine Estimated GFR (MDRD) Glucose POC Capillary Glucose Calculated Osmolality Calcium Total Bilirubin AST ALT Alkaline Phosphatase Total Protein Albumin Urine Color Yellow Urine Clarity Sl hzy Urine pH 5.0 Ur Specific [employer] 1.035 Urine Protein 1+ H Urine Glucose (UA) 2+ H Urine Ketones 3+ H Urine Occult Blood Neg Urine Nitrite Neg Urine Bilirubin Neg Urine Urobilinogen 0.2 Ur Leukocyte Esterase Neg Urine RBC 0-2 Urine WBC 0-2 Ur Epithelial Cells 3+ Urine Bacteria Few Hyaline Casts 2-5 H Granular Casts 2-5 H Urine Mucus Occ Urine Test Neg - Diagnostic Findings Chest x-ray, viewed personally: EXAM: CHEST 2 VIEW COMPARISON: Chest radiograph performed 03/03/2016 FINDINGS: The lungs are well-aerated and clear. There is no evidence of focal opacification, pleural effusion or pneumothorax. The heart is normal in size; the mediastinal contour is within normal limits. No acute osseous abnormalities are seen. IMPRESSION: No acute cardiopulmonary process seen. - Assessment (1) DKA, type 2, not at goal E13.10 - OTH DIABETES MELLITUS WITH KETOACIDOSIS WITHOUT COMA Acute Present on Admission: Yes HISTORY: Type 2 diabetic with multiple prior episodes of DKA. Severe. Patient is critically ill and in DKA. Has an elevated anion gap and acidosis on blood gas. Plan: Admit to ICU. Order DKA protocol. Insulin IV gtt. Will need to add IV bicarb gtt. Measure basic metabolic panel and other labs per schedule. Replace potassium per protocol. (2) Acute bacterial sinusitis J01.90 - ACUTE SINUSITIS, UNSPECIFIED; B96.89 - OTH BACTERIAL AGENTS THE CAUSE OF DISEASES CLASSD ELSWHR Acute Present on Admission: Yes For possible infection. Bacterial sinusitis is possible; had episode, was improved, then worsened again. Plan: Has PCN allergy. Trial of azithromycin. (3) Nausea and vomiting R11.2 - NAUSEA WITH VOMITING, UNSPECIFIED Resolved Present on Admission: Yes Qualifiers: Qualified Code(s): R11.2 - Nausea with vomiting, unspecified PRN Zofran, phenergan. Associated with DKA. (4) Migraine headache without aura G43.009 - MIGRAINE W/O AURA, NOT INTRACTABLE, W/O STATUS MIGRAINOSUS Acute Plan: Consider triptan. (5) Anxiety F41.9 - ANXIETY DISORDER, UNSPECIFIED Acute Present on Admission: Yes Multiple life stressors. Tearful. Had panic attacks. Plan: Started celexa. PRN Ativan. - Plan In summary, this patient is acutely and critically ill. The patient requires treatment of vital organ failure and measures to prevent further life- threatening deterioration of condition. I have spent 60 min in the critical care of this patient. Case Care Discussed with: Patient, Nursing Staff Total Time: 60 min Critical Care: Yes Code: 291
[2016-03-18] MEDS ORDERED: SODIUM BICARBONATE 100 ML IV ONE (19:58)
[2016-03-18] MEDS ORDERED: DEXTROSE 25 GM/50 ML PFS IV PRN (19:59)
[2016-03-18] MEDS ORDERED: REGULAR INSULIN 100 UNITS/ML - 3 ML VIAL SQ SCH (20:00)
[2016-03-18] MEDS ORDERED: NS/KCl 20 mEq 1,000 ML IV SCH (20:00)
[2016-03-18] MEDS ORDERED: Insulin, Regular 100 UNITS in NS 99 ML IV SCH ×2 (20:00)
[2016-03-18] MEDS ORDERED: NS 1,000 ML IV SCH (20:00)
[2016-03-18] MEDS ORDERED: DKA ELECTROLYTE PROTOCOL SCH (20:00)
[2016-03-18] MEDS ORDERED: D5-1/2NS/KCL 20 mEq 1,000 ML IV SCH (20:00)
[2016-03-18 20:02] LABS: FREE T3 2.18 pg/mL (2.77-5.27); FREE T4 0.71 ng/dL (0.78-2.19)
[2016-03-18] MEDS ORDERED: GUAIFEN 100 MG-DEXTROMETH 10 MG PER 5 ML PO PRN (20:02)
[2016-03-18] MEDS ORDERED: BISACODYL 5 MG TAB PO PRN (20:02)
[2016-03-18] MEDS ORDERED: ACETAMINOPHEN 325 MG/TAB TABLET PO PRN (20:02)
[2016-03-18] MEDS ORDERED: ACETAMINOPHEN 325 MG SUPP PR PRN (20:02)
[2016-03-18] MEDS ORDERED: SIMETHICONE 80 MG TAB PO PRN (20:02)
[2016-03-18] MEDS ORDERED: Docusate Sodium 100 MG CAP PO PRN (20:02)
[2016-03-18] MEDS ORDERED: PROMETHAZINE 25 MG/ML VIAL IV PRN (20:02)
[2016-03-18] MEDS ORDERED: TEMAZEPAM 15 MG CAP PO PRN (20:02)
[2016-03-18] MEDS ORDERED: SENNA CONCENTRATE TAB PO PRN (20:02)
[2016-03-18] MEDS ORDERED: BENZONATATE 100 MG PERLES PO PRN (20:02)
[2016-03-18] MEDS ORDERED: OXYCODONE HCL 5 MG TABLET PO PRN (20:05)
[2016-03-18 20:16] LABS: hTSH 7.11 uIU/mL (0.5-4.67)
[2016-03-18] MEDS: Insulin, Regular 100 UNITS in NS 99 ML IV SCH ×2 (20:37)
--- NOTE | 2016-03-18 21:00 | DIRPT ---
CLINICAL DATA: Acute onset of generalized weakness, nausea and vomiting. Cough. Hyperglycemia. Initial encounter. EXAM: CHEST 2 VIEW COMPARISON: Chest radiograph performed 03/03/2016 FINDINGS: The lungs are well-aerated and clear. There is no evidence of focal opacification, pleural effusion or pneumothorax. The heart is normal in size; the mediastinal contour is within normal limits. No acute osseous abnormalities are seen. IMPRESSION: No acute cardiopulmonary process seen. Electronically Signed By: Efren Osuna M.D. On: 03/18/2016 20:57
[2016-03-18] MEDS ORDERED: LORAZEPAM 2 MG/ML VIAL IV PRN (21:28)
[2016-03-18] MEDS ORDERED: SUMATRIPTAN SUCCINATE 25 MG TAB PO ONE (21:38)
[2016-03-18] MEDS ORDERED: ALBUTEROL 0.083% 3 ML NEB NEB PRN (21:44)
[2016-03-18] MEDS: SODIUM BICARBONATE 150 MEQ in WATER 1,000 ML IV SCH (21:50)
[2016-03-18] MEDS: ENOXAPARIN 40 MG/0.4 ML PFS SQ SCH (21:54)
[2016-03-18 21:56] VITALS: BMI 22.1
[2016-03-18 21:59] LABS: BLOOD UREA NITROGEN 10 MG/DL (7-17); CALCIUM 8.3 MG/DL (8.4-10.2); CALCULATED OSMOLALITY 273 MOs/Kg (270-290); CHLORIDE 105 mEq/L (98-107); GLUCOSE 186 MG/DL (70-99); SODIUM LEVEL 140 mEq/L (137-146)
[2016-03-18] MEDS ORDERED: AZITHROMYCIN 500 MG in D5W 250 ML IV SCH (22:00)
[2016-03-18] MEDS: CHLORHEXIDINE (HIBICLENS) 4 OZ BOTTLE TOP SCH (22:29)
[2016-03-18] MEDS: D5-1/2NS/KCL 20 mEq 1,000 ML IV SCH (22:30)
[2016-03-18] MEDS: CEFTRIAXONE 1 GM in D5W 100 ML IV SCH (22:31)
[2016-03-18] MEDS: CITALOPRAM HBR PO SCH (22:34)
[2016-03-18] MEDS ORDERED: Magnesium Sulfate 2 gm/D5W 2 GM/50 ML RTU IV ONE (23:00)
[2016-03-18] MEDS ORDERED: KCl 10 mEq/100 ml Premix (Run) 10 MEQ/100 ML RTU IV ONE (23:45)
[2016-03-19 02:22] LABS: BLOOD UREA NITROGEN 9 MG/DL (7-17); CALCIUM 7.7 MG/DL (8.4-10.2); CALCULATED OSMOLALITY 263 MOs/Kg (270-290); CHLORIDE 104 mEq/L (98-107); GLUCOSE 131 MG/DL (70-99); SODIUM LEVEL 136 mEq/L (137-146)
[2016-03-19] MEDS: ALBUTEROL 0.083% 3 ML NEB NEB SCH ×4 (02:42→20:56)
[2016-03-19] MEDS: AZITHROMYCIN 500 MG in D5W 250 ML IV SCH (02:55)
[2016-03-19] MEDS ORDERED: Vaccine Screening Complete SCH (03:00)
[2016-03-19] MEDS: ONDANSETRON HCL 4 MG/2 ML VIAL IV PRN ×2 (03:34→08:34)
[2016-03-19] MEDS: KCl 10 mEq/100 ml Premix (Run) 10 MEQ/100 ML RTU IV SCH ×2 (03:45→04:50)
[2016-03-19] MEDS: POTASSIUM CHLORIDE 20 MEQ TAB PO SCH ×3 (03:49→06:33)
[2016-03-19] MEDS: D5-1/2NS/KCL 20 mEq 1,000 ML IV SCH (06:29)
[2016-03-19] MEDS: SODIUM BICARBONATE 150 MEQ in WATER 1,000 ML IV SCH ×2 (06:31→17:10)
[2016-03-19] MEDS: Insulin, Regular 100 UNITS in NS 99 ML IV SCH ×2 (06:31)
[2016-03-19 08:01] LABS: BLOOD UREA NITROGEN 7 MG/DL (7-17); CALCIUM 7.8 MG/DL (8.4-10.2); CALCULATED OSMOLALITY 260 MOs/Kg (270-290); CHLORIDE 103 mEq/L (98-107); GLUCOSE 132 MG/DL (70-99); SODIUM LEVEL 135 mEq/L (137-146)
--- NOTE | 2016-03-19 08:51 | GENMEDPROG ---
Subjective Note: Patient awake and alert. Sitting up in the bed still on insulin drip and requiring a bicarb drip. Her CO2 was only 19. Notes Reviewed: Yes Events from last night noted and discussed with Clinical Staff Current Medication List: Reviewed Currently: Reports: Cough DVT Prophylaxis: Yes - Physical Examination Vital Signs and I&O: Last Vital Signs Temp 97.9 F 03/19/16 03:00 Pulse 96 03/19/16 06:00 Resp 20 03/19/16 06:00 BP 100/58 L 03/19/16 06:00 Pulse Ox 100 03/19/16 06:00 Oxygen Pulse Oxygen Saturation 100 O2 Device Room Air Oxygen Flow Rate Fraction of Inspired Oxygen ( FIO2) Intake & Output 03/16/16 03/17/16 03/18/16 03/19/16 23:59 23:59 23:59 23:59 Intake Total 2313 2648 Output Total 600 15 Balance 1713 2633 Patient's weight 69.899 kg 70.216 kg General: Alert, Oriented x3, No acute distress, Well appearing, Well nourished HEENT: Normal (Normocephalic, atraumatic;EOMI.Sclera white, Nares patent, without discharge or bleeding. No oropharyngeal lesions or erythema. Mucous membranes are dry.) Neck: Non-tender, Full range of motion, Normal Trachea alignment, Normal inspection (No cervical lymphadenopathy. No supraclavicular lymphadenopathy.), No Masses palpable, Supple Lymphatics: Normal (no adenopathy) Respiratory: Accessory Muscle Use, Tachypnea Cardiovascular: Regular rate and rhythm (No bradycardia or tachycardia), Normal S1, No Gallops,Rubs/Murmurs, Normal S2, Good Pedal Pulses (DP pulses 2+ bilaterally) GI: Normal bowel sounds (normal active sounds), Soft (non-distended), Non tender , No hepatospenomegaly, No masses Extremities/Musculoskeletal: Normal pulses (DP pulses 2+ bilaterally) Skin: Warm,Dry and Intact, No rashes, No significant lesion Neurological: Strength at 5/5 X4 ext (Motor 5/5 throughout.), Normal tone, Cranial nerves 3-12 NL ( 2-12 grossly intact.) Lab/DI/Studies Reviewed: Laboratory Results - last 24 hr 03/18/16 03/18/16 03/18/16 18:13 18:30 18:30 WBC 13.6 H RBC 5.90 H Hgb 17.5 H Hct 52.2 H MCV 89 MCH 29.7 MCHC 33.5 RDW 13.6 Plt Count 356 MPV 9.3 Neut % (Auto) 73.3 Lymph % (Auto) 17.9 [place] % (Auto) 8.1 Eos % (Auto) 0.1 Baso % (Auto) 0.6 Absolute Neuts (auto) 9.93 H Absolute Lymphs (auto) 2.31 Sodium 139 Potassium 3.7 Chloride 102 Carbon Dioxide < 5 L* Anion Gap 36 H BUN 11 Creatinine 0.80 Estimated GFR (MDRD) > 60 Glucose 319 H POC Capillary Glucose 340 H Calculated Osmolality 279 Calcium 9.2 Magnesium Total Bilirubin 0.7 AST 19 ALT 28 Alkaline Phosphatase 129 H Total Protein 9.2 H Albumin 5.1 H TSH Free T4 Free T3 Urine Color Urine Clarity Urine pH Ur Specific [place] Urine Protein Urine Glucose (UA) Urine Ketones Urine Occult Blood Urine Nitrite Urine Bilirubin Urine Urobilinogen Ur Leukocyte Esterase Urine RBC Urine WBC Ur Epithelial Cells Urine Bacteria Hyaline Casts Granular Casts Urine Mucus Urine Test 03/18/16 03/18/16 03/18/16 18:30 19:10 19:10 WBC RBC Hgb Hct MCV MCH MCHC RDW Plt Count MPV Neut % (Auto) Lymph % (Auto) [place] % (Auto) Eos % (Auto) Baso % (Auto) Absolute Neuts (auto) Absolute Lymphs (auto) Sodium Potassium Chloride Carbon Dioxide Anion Gap BUN Creatinine Estimated GFR (MDRD) Glucose POC Capillary Glucose Calculated Osmolality Calcium Magnesium Total Bilirubin AST ALT Alkaline Phosphatase Total Protein Albumin TSH 7.11 H Free T4 0.71 L Free T3 2.18 L Urine Color Yellow Urine Clarity Sl hzy Urine pH 5.0 Ur Specific [place] 1.035 Urine Protein 1+ H Urine Glucose (UA) 2+ H Urine Ketones 3+ H Urine Occult Blood Neg Urine Nitrite Neg Urine Bilirubin Neg Urine Urobilinogen 0.2 Ur Leukocyte Esterase Neg Urine RBC 0-2 Urine WBC 0-2 Ur Epithelial Cells 3+ Urine Bacteria Few Hyaline Casts 2-5 H Granular Casts 2-5 H Urine Mucus Occ Urine Test Neg 03/18/16 03/18/16 03/18/16 20:24 21:33 21:35 WBC RBC Hgb Hct MCV MCH MCHC RDW Plt Count MPV Neut % (Auto) Lymph % (Auto) [place] % (Auto) Eos % (Auto) Baso % (Auto) Absolute Neuts (auto) Absolute Lymphs (auto) Sodium 140 Potassium 3.7 Chloride 105 Carbon Dioxide < 5 L* Anion Gap 34 H BUN 10 Creatinine 0.60 Estimated GFR (MDRD) > 60 Glucose 186 H POC Capillary Glucose 267 H 189 H Calculated Osmolality 273 Calcium 8.3 L Magnesium 1.70 Total Bilirubin AST ALT Alkaline Phosphatase Total Protein Albumin TSH Free T4 Free T3 Urine Color Urine Clarity Urine pH Ur Specific [place] Urine Protein Urine Glucose (UA) Urine Ketones Urine Occult Blood Urine Nitrite Urine Bilirubin Urine Urobilinogen Ur Leukocyte Esterase Urine RBC Urine WBC Ur Epithelial Cells Urine Bacteria Hyaline Casts Granular Casts Urine Mucus Urine Test 03/18/16 03/18/16 03/19/16 22:39 23:58 01:01 WBC RBC Hgb Hct MCV MCH MCHC RDW Plt Count MPV Neut % (Auto) Lymph % (Auto) [place] % (Auto) Eos % (Auto) Baso % (Auto) Absolute Neuts (auto) Absolute Lymphs (auto) Sodium Potassium Chloride Carbon Dioxide Anion Gap BUN Creatinine Estimated GFR (MDRD) Glucose POC Capillary Glucose 179 H 181 H 149 H Calculated Osmolality Calcium Magnesium Total Bilirubin AST ALT Alkaline Phosphatase Total Protein Albumin TSH Free T4 Free T3 Urine Color Urine Clarity Urine pH Ur Specific [place] Urine Protein Urine Glucose (UA) Urine Ketones Urine Occult Blood Urine Nitrite Urine Bilirubin Urine Urobilinogen Ur Leukocyte Esterase Urine RBC Urine WBC Ur Epithelial Cells Urine Bacteria Hyaline Casts Granular Casts Urine Mucus Urine Test 03/19/16 03/19/16 03/19/16 01:55 02:00 03:05 WBC RBC Hgb Hct MCV MCH MCHC RDW Plt Count MPV Neut % (Auto) Lymph % (Auto) [place] % (Auto) Eos % (Auto) Baso % (Auto) Absolute Neuts (auto) Absolute Lymphs (auto) Sodium 136 L Potassium 2.9 L Chloride 104 Carbon Dioxide 9 L* Anion Gap 26 H BUN 9 Creatinine 0.50 L Estimated GFR (MDRD) > 60 Glucose 131 H POC Capillary Glucose 139 H 147 H Calculated Osmolality 263 L Calcium 7.7 L Magnesium Total Bilirubin AST ALT Alkaline Phosphatase Total Protein Albumin TSH Free T4 Free T3 Urine Color Urine Clarity Urine pH Ur Specific [place] Urine Protein Urine Glucose (UA) Urine Ketones Urine Occult Blood Urine Nitrite Urine Bilirubin Urine Urobilinogen Ur Leukocyte Esterase Urine RBC Urine WBC Ur Epithelial Cells Urine Bacteria Hyaline Casts Granular Casts Urine Mucus Urine Test 03/19/16 03/19/16 03/19/16 04:10 05:15 06:13 WBC RBC Hgb Hct MCV MCH MCHC RDW Plt Count MPV Neut % (Auto) Lymph % (Auto) [place] % (Auto) Eos % (Auto) Baso % (Auto) Absolute Neuts (auto) Absolute Lymphs (auto) Sodium Potassium Chloride Carbon Dioxide Anion Gap BUN Creatinine Estimated GFR (MDRD) Glucose POC Capillary Glucose 185 H 168 H 150 H Calculated Osmolality Calcium Magnesium Total Bilirubin AST ALT Alkaline Phosphatase Total Protein Albumin TSH Free T4 Free T3 Urine Color Urine Clarity Urine pH Ur Specific [place] Urine Protein Urine Glucose (UA) Urine Ketones Urine Occult Blood Urine Nitrite Urine Bilirubin Urine Urobilinogen Ur Leukocyte Esterase Urine RBC Urine WBC Ur Epithelial Cells Urine Bacteria Hyaline Casts Granular Casts Urine Mucus Urine Test 03/19/16 03/19/16 03/19/16 06:17 07:35 08:40 WBC RBC Hgb Hct MCV MCH MCHC RDW Plt Count MPV Neut % (Auto) Lymph % (Auto) [place] % (Auto) Eos % (Auto) Baso % (Auto) Absolute Neuts (auto) Absolute Lymphs (auto) Sodium 135 L Potassium 3.5 Chloride 103 Carbon Dioxide 19 L Anion Gap 17 H BUN 7 Creatinine 0.50 L Estimated GFR (MDRD) > 60 Glucose 132 H POC Capillary Glucose 135 H 115 H Calculated Osmolality 260 L Calcium 7.8 L Magnesium Total Bilirubin AST ALT Alkaline Phosphatase Total Protein Albumin TSH Free T4 Free T3 Urine Color Urine Clarity Urine pH Ur Specific [place] Urine Protein Urine Glucose (UA) Urine Ketones Urine Occult Blood Urine Nitrite Urine Bilirubin Urine Urobilinogen Ur Leukocyte Esterase Urine RBC Urine WBC Ur Epithelial Cells Urine Bacteria Hyaline Casts Granular Casts Urine Mucus Urine Test - Assessment (1) DKA, type 2, not at goal Acute E13.10 - OTH DIABETES MELLITUS WITH KETOACIDOSIS WITHOUT COMA Comment/ Plan: HISTORY: Type 2 diabetic with multiple prior episodes of DKA. Severe. Patient is critically ill and in DKA. Has an elevated anion gap and acidosis on blood gas. Plan: Continue ICU care as patient's bicarb remains very low at 19. She still has an open anion gap. She continues to require insulin drip and bicarb drip. Monitor closely throughout the day. (2) Acute bacterial sinusitis Acute J01.90 - ACUTE SINUSITIS, UNSPECIFIED; B96.89 - OTH BACTERIAL AGENTS THE CAUSE OF DISEASES CLASSD ELSWHR Comment/Plan: For possible infection. Bacterial sinusitis is possible; had episode, was improved, then worsened again. Continue present azithromycin dosing. (3) Anxiety Acute F41.9 - ANXIETY DISORDER, UNSPECIFIED Comment/Plan: Multiple life stressors. Tearful. Had panic attacks. Plan: Started celexa. PRN Ativan. (4) Migraine headache without aura Acute G43.009 - MIGRAINE W/O AURA, NOT INTRACTABLE, W/O STATUS MIGRAINOSUS Qualifiers: Status migrainosus presence: without status migrainosus Intractability: not intractable Qualified Code(s): G43.009 - Migraine without aura, not intractable, without status migrainosus Comment/Plan: Plan: Consider triptan. (5) Nausea and vomiting Resolved R11.2 - NAUSEA WITH VOMITING, UNSPECIFIED Qualifiers: Vomiting type: unspecified Vomiting Intractability: unspecified Qualified Code(s): R11.2 - Nausea with vomiting, unspecified Comment/Plan: PRN Zofran, phenergan. Associated with DKA. - Plan Continue ICU care. Case Care Discussed with: Patient, Nursing Staff Education/Counseling Given To: Patient Education/Counseling Given Regarding: Diagnosis, Treatment, Prognosis, Follow Up , Disposition Plan Total Time: 45 minutes. Critical Care: Yes [place] Time (>50% in counseling/coordination): No
[2016-03-19] MEDS ORDERED: INSULIN DETEMIR 100 UNITS/ML PEN SQ SCH (09:00)
[2016-03-19] MEDS ORDERED: SUMATRIPTAN SUCCINATE 25 MG TAB PO PRN (10:00)
[2016-03-19 10:49] LABS: BLOOD UREA NITROGEN 8 MG/DL (7-17); CALCIUM 7.9 MG/DL (8.4-10.2); CALCULATED OSMOLALITY 258 MOs/Kg (270-290); CHLORIDE 102 mEq/L (98-107); GLUCOSE 98 MG/DL (70-99); SODIUM LEVEL 135 mEq/L (137-146)
[2016-03-19] MEDS ORDERED: KCl 10 mEq/100 ml Premix (Run) 10 MEQ/100 ML RTU IV ONE (12:00)
[2016-03-19] MEDS: PSEUDOEPHEDRINE 30 MG TAB PO SCH ×2 (12:32→17:11)
[2016-03-19] MEDS ORDERED: GLUCAGON 1 MG VIAL SQ PRN (13:03)
[2016-03-19] MEDS ORDERED: DEXTROSE 25 GM/50 ML PFS IV PRN (13:03)
[2016-03-19] MEDS ORDERED: GLUCOSE (ORAL GEL) 15 GM TUBE PO PRN (13:03)
[2016-03-19] MEDS ORDERED: INSULIN DETEMIR 100 UNITS/ML PEN SQ ONE (13:15)
[2016-03-19 14:46] LABS: BLOOD UREA NITROGEN 7 MG/DL (7-17); CALCIUM 8.3 MG/DL (8.4-10.2); CALCULATED OSMOLALITY 256 MOs/Kg (270-290); CHLORIDE 102 mEq/L (98-107); GLUCOSE 100 MG/DL (70-99); SODIUM LEVEL 134 mEq/L (137-146)
[2016-03-19] MEDS: ENOXAPARIN 40 MG/0.4 ML PFS SQ SCH (17:11)
[2016-03-19] MEDS: REGULAR INSULIN 100 UNITS/ML - 3 ML VIAL SQ SCH ×2 (17:13→21:15)
[2016-03-19 19:02] LABS: BLOOD UREA NITROGEN 7 MG/DL (7-17); CALCIUM 8.4 MG/DL (8.4-10.2); CALCULATED OSMOLALITY 262 MOs/Kg (270-290); CHLORIDE 97 mEq/L (98-107); GLUCOSE 236 MG/DL (70-99); SODIUM LEVEL 133 mEq/L (137-146)
[2016-03-19] MEDS: CITALOPRAM HBR PO SCH (21:12)
[2016-03-19] MEDS: CEFTRIAXONE 1 GM in D5W 100 ML IV SCH (21:13)
[2016-03-19] MEDS: INSULIN DETEMIR 100 UNITS/ML PEN SQ SCH (21:17)
[2016-03-19] MEDS: CHLORHEXIDINE (HIBICLENS) 4 OZ BOTTLE TOP SCH (21:19)
[2016-03-20] MEDS: PSEUDOEPHEDRINE 30 MG TAB PO SCH ×5 (00:07→23:56)
[2016-03-20] MEDS: AZITHROMYCIN 500 MG in D5W 250 ML IV SCH (00:07)
[2016-03-20] MEDS: SODIUM BICARBONATE 150 MEQ in WATER 1,000 ML IV SCH ×2 (01:57→09:12)
[2016-03-20] MEDS: ALBUTEROL 0.083% 3 ML NEB NEB SCH ×3 (02:57→15:04)
[2016-03-20] MEDS: REGULAR INSULIN 100 UNITS/ML - 3 ML VIAL SQ SCH ×4 (05:11→20:52)
[2016-03-20 06:22] LABS: AUTOMATED BASOPHIL 0.6 % (0-2); AUTOMATED EOSINOPHIL 1.4 % (0-5); AUTOMATED MONOCYTE 8.4 % (3-10); AUTOMATED NEUTROPHIL 38.6 % (45-76)
[2016-03-20 06:40] LABS: BLOOD UREA NITROGEN 4 MG/DL (7-17); CALCULATED OSMOLALITY 261 MOs/Kg (270-290); CHLORIDE 95 mEq/L (98-107); GLUCOSE 172 MG/DL (70-99); SODIUM LEVEL 135 mEq/L (137-146)
[2016-03-20 06:56] LABS: CALCIUM 7.9 MG/DL (8.4-10.2)
[2016-03-20] MEDS ORDERED: KCL 20 mEq/100 ml Premix Run 20 MEQ/100 ML RTU IV ONE (08:30)
--- NOTE | 2016-03-20 08:34 | GENMEDPROG ---
Subjective Note: Patient looks significantly better today her bicarbonate level is up she is out of DKA. She is tolerating p.o.. Notes Reviewed: Yes Events from last night noted and discussed with Clinical Staff Current Medication List: Reviewed Currently: Reports: Cough DVT Prophylaxis: Yes - Physical Examination Vital Signs and I&O: Last Vital Signs Temp 98.3 F 03/20/16 07:00 Pulse 84 03/20/16 08:00 Resp 18 03/20/16 06:00 BP 116/66 03/20/16 08:00 Pulse Ox 100 03/19/16 06:00 Oxygen Pulse Oxygen Saturation 100 O2 Device Room Air Oxygen Flow Rate Fraction of Inspired Oxygen ( FIO2) Intake & Output 03/17/16 03/18/16 03/19/16 03/20/16 23:59 23:59 23:59 23:59 Intake Total 2313 6671 1155 Output Total 600 1365 1350 Balance 8393 9196 -277 Patient's weight 69.899 kg 70.216 kg General: Alert, Oriented x3, No acute distress, Well appearing, Well nourished HEENT: Normal (Normocephalic, atraumatic;EOMI.Sclera white, Nares patent, without discharge or bleeding. No oropharyngeal lesions or erythema. Mucous membranes are dry.) Neck: Non-tender, Full range of motion, Normal Trachea alignment, Normal inspection (No cervical lymphadenopathy. No supraclavicular lymphadenopathy.), No Masses palpable, Supple Lymphatics: Normal (no adenopathy) Respiratory: Accessory Muscle Use, Tachypnea Cardiovascular: Regular rate and rhythm (No bradycardia or tachycardia), Normal S1, No Gallops,Rubs/Murmurs, Normal S2, Good Pedal Pulses (DP pulses 2+ bilaterally) GI: Normal bowel sounds (normal active sounds), Soft (non-distended), Non tender , No hepatospenomegaly, No masses Extremities/Musculoskeletal: Normal pulses (DP pulses 2+ bilaterally) Skin: Warm,Dry and Intact, No rashes, No significant lesion Neurological: Strength at 5/5 X4 ext (Motor 5/5 throughout.), Normal tone, Cranial nerves 3-12 NL ( 2-12 grossly intact.) Lab/DI/Studies Reviewed: Abnormal Lab Results 03/19/16 03/19/16 03/19/16 08:40 09:40 10:00 RBC Hgb Hct Neut % (Auto) Lymph % (Auto) Absolute Neuts (auto) Sodium 135 L Potassium Chloride Carbon Dioxide Anion Gap BUN Creatinine 0.40 L Glucose POC Capillary Glucose 115 H 103 H Calculated Osmolality 258 L Calcium 7.9 L 03/19/16 03/19/16 03/19/16 11:00 12:15 13:26 RBC Hgb Hct Neut % (Auto) Lymph % (Auto) Absolute Neuts (auto) Sodium Potassium Chloride Carbon Dioxide Anion Gap BUN Creatinine Glucose POC Capillary Glucose 127 H 121 H 119 H Calculated Osmolality Calcium 03/19/16 03/19/16 03/19/16 14:15 17:09 18:20 RBC Hgb Hct Neut % (Auto) Lymph % (Auto) Absolute Neuts (auto) Sodium 134 L 133 L Potassium Chloride 97 L Carbon Dioxide 19 L Anion Gap 21 H BUN Creatinine 0.40 L Glucose 100 H 236 H POC Capillary Glucose 254 H Calculated Osmolality 256 L 262 L Calcium 8.3 L 03/19/16 03/20/16 03/20/16 20:16 05:09 05:45 RBC 3.99 L Hgb 11.8 L D Hct 33.5 L Neut % (Auto) 38.6 L Lymph % (Auto) 51.0 H Absolute Neuts (auto) 1.56 L Sodium Potassium Chloride Carbon Dioxide Anion Gap BUN Creatinine Glucose POC Capillary Glucose 304 H 194 H Calculated Osmolality Calcium 03/20/16 05:45 RBC Hgb Hct Neut % (Auto) Lymph % (Auto) Absolute Neuts (auto) Sodium 135 L Potassium 2.8 L Chloride 95 L Carbon Dioxide Anion Gap BUN 4 L Creatinine 0.40 L Glucose 172 H POC Capillary Glucose Calculated Osmolality 261 L Calcium 7.9 L - Assessment (1) DKA, type 2, not at goal Acute E13.10 - OTH DIABETES MELLITUS WITH KETOACIDOSIS WITHOUT COMA Comment/ Plan: Patient with multiple episodes of DKA. May be related to her sliding scale which is a little bit on her home dose increases by 1 increment from 251 to greater than 400. I have adjusted this dosing for today. Insulin drip has been discontinued. Will monitor patient's response to adjusted sliding scale today. (2) Acute bacterial sinusitis Acute J01.90 - ACUTE SINUSITIS, UNSPECIFIED; B96.89 - OTH BACTERIAL AGENTS THE CAUSE OF DISEASES CLASSD ELSWHR Comment/Plan: Continue azithromycin. Pseudoephedrine ordered and headache has improved. Blood pressure stable on pseudoephedrine. (3) Anxiety Acute F41.9 - ANXIETY DISORDER, UNSPECIFIED Comment/Plan: Much more calm today she is feeling significantly better. (4) Migraine headache without aura Acute G43.009 - MIGRAINE W/O AURA, NOT INTRACTABLE, W/O STATUS MIGRAINOSUS Qualifiers: Status migrainosus presence: without status migrainosus Intractability: not intractable Qualified Code(s): G43.009 - Migraine without aura, not intractable, without status migrainosus Comment/Plan: P.r.n. tripped hands available. - Plan Transfer to S3. Case Care Discussed with: Patient, Nursing Staff Education/Counseling Given To: Patient Education/Counseling Given Regarding: Diagnosis, Treatment, Prognosis, Disposition Plan Total Time: 45 minutes Critical Care: No Couseling Time (>50% in counseling/coordination): No
[2016-03-20] MEDS ORDERED: Medication Special Instructions SCH (11:00)
[2016-03-20] MEDS: POTASSIUM CHLORIDE 20 MEQ TAB PO SCH ×2 (11:38→16:40)
[2016-03-20] MEDS: ENOXAPARIN 40 MG/0.4 ML PFS SQ SCH (16:44)
[2016-03-20] MEDS: CITALOPRAM HBR PO SCH (20:48)
[2016-03-20] MEDS: INSULIN DETEMIR 100 UNITS/ML PEN SQ SCH (20:48)
[2016-03-20] MEDS: CEFTRIAXONE 1 GM in D5W 100 ML IV SCH (20:49)
[2016-03-20] MEDS ORDERED: AZITHROMYCIN 250 MG TAB PO SCH (21:00)
[2016-03-21 05:28] VITALS: BP 133/87; PULSE 83; TEMP 98.2
[2016-03-21] MEDS: REGULAR INSULIN 100 UNITS/ML - 3 ML VIAL SQ SCH ×2 (05:51→11:52)
[2016-03-21] MEDS: PSEUDOEPHEDRINE 30 MG TAB PO SCH (05:54)
[2016-03-21 07:14] LABS: AUTOMATED BASOPHIL 0.8 % (0-2); AUTOMATED LYMPH 51.2 % (17-44); AUTOMATED MONOCYTE 10.8 % (3-10); AUTOMATED NEUTROPHIL 34.2 % (45-76); MPV 8.6 fL (7.4-10.4)
[2016-03-21 07:38] LABS: BLOOD UREA NITROGEN 4 MG/DL (7-17); CALCIUM 9.1 MG/DL (8.4-10.2); CALCULATED OSMOLALITY 261 MOs/Kg (270-290); CHLORIDE 98 mEq/L (98-107); GLUCOSE 107 MG/DL (70-99); SODIUM LEVEL 137 mEq/L (137-146)
[2016-03-21] MEDS: POTASSIUM CHLORIDE 20 MEQ TAB PO SCH (08:16)
--- NOTE | 2016-03-21 10:40 | PCM.DCS92 ---
- Final/Secondary Discharge Diagnosis (1) DKA, type 2, not at goal Resolved E13.10 - OTH DIABETES MELLITUS WITH KETOACIDOSIS WITHOUT COMA Present on Admission: Yes Comment: Patient with multiple episodes of DKA. May be related to her sliding scale which is a little bit on her home dose increases by 1 increment from 251 to greater than 400. I have adjusted this dosing for today. Insulin drip has been discontinued. Will monitor patient's response to adjusted sliding scale today. (2) Acute bacterial sinusitis Acute J01.90 - ACUTE SINUSITIS, UNSPECIFIED; B96.89 - OTH BACTERIAL AGENTS THE CAUSE OF DISEASES CLASSD ELSWHR Present on Admission: Yes Comment: Continue azithromycin. Pseudoephedrine ordered and headache has improved. Blood pressure stable on pseudoephedrine. (3) Anxiety Chronic F41.9 - ANXIETY DISORDER, UNSPECIFIED Present on Admission: Yes Comment: Much more calm today she is feeling significantly better. (4) Migraine headache without aura Chronic G43.009 - MIGRAINE W/O AURA, NOT INTRACTABLE, W/O STATUS MIGRAINOSUS without status migrainosus not intractable G43.009 - Migraine without aura , not intractable, without status migrainosus Comment: P.r.n. tripped hands available. Discharge Disposition: Home Discharge Condition: Improved Cognitive Discharge Status: Unimpaired Fuctional Discharge Status: Independent Forms: Patient Discharge Instructions, ED Discharge Instructions Physician Follow up/Referrals: Shayan Moore MD [NonStaff] - Two Weeks (referral for Type 1 diabetic with recent DKA and no manager cost. Needs eval. ) Home Medications / New Prescriptions: New CITALOPRAM (anti-depressant) [Celexa] 10 mg PO HS #30 tablet Oxycodone Immediate Release [Oxycodone Immediate Release (OxyIR)] 5 mg PO Q4H PRN #10 tablet PRN Reason: Moderate To Severe Pain Pseudoephedrine [Sudafed] 30 mg PO Q6 #28 tablet Azithromycin [Zithromax] 500 mg PO HS #11 tablet Continue Insulin Detemir [Levemir] 25 units SQ HS Insulin Aspart [Novolog] 10 units SQ .SSI TIDAC #5 pen Discharge Home Medication List Insulin Detemir [Levemir] 25 units SQ HS 03/03/16 [History Confirmed 03/18/16] Azithromycin [Zithromax] 500 mg PO HS #11 tablet 03/21/16 [Rx] CITALOPRAM (anti-depressant) [Celexa] 10 mg PO HS #30 tablet 03/21/16 [Rx] Insulin Aspart [Novolog] 10 units SQ .SSI TIDAC #5 pen 03/21/16 [Rx] Oxycodone Immediate Release [Oxycodone Immediate Release (OxyIR)] 5 mg PO Q4H PRN #10 tablet 03/21/16 [Rx] Pseudoephedrine [Sudafed] 30 mg PO Q6 #28 tablet 03/21/16 [Rx] New Discharge Medications (Rx) Azithromycin [Zithromax] 500 mg PO HS #11 tablet 03/21/16 [Rx] CITALOPRAM (anti-depressant) [Celexa] 10 mg PO HS #30 tablet 03/21/16 [Rx] Insulin Aspart [Novolog] 10 units SQ .SSI TIDAC #5 pen 03/21/16 [Rx] Oxycodone Immediate Release [Oxycodone Immediate Release (OxyIR)] 5 mg PO Q4H PRN #10 tablet 03/21/16 [Rx] Pseudoephedrine [Sudafed] 30 mg PO Q6 #28 tablet 03/21/16 [Rx] O2 Device: Room Air Diet at Discharge: 1800 Calorie Activity: No Restrictions, As Tolerated Call Office For: Worsening Symptoms, Fever over 100.5, Pain Uncontrolled By Meds - DC Summary Notes Hospital Course Note:: Discharge summary on patient named JAIME EARL admitted to [facility] on 03/18/16 by Andrade Brown MD. Date of discharge is []. Very pleasant unfortunate 30-year-old female with DKA thought to be of brought on by acute sinusitis. She was placed in the hospital on an insulin drip and her pH was noted to be very low. She required a bicarb drip as well. Once her DKA and her acidosis resolved the patient had improved significantly but her sugars remained high. Adjustments were made to her home insulin sliding scale. Her home Levemir dosing remain the same. Her sugars improved. Given her significant abnormalities with her blood glucoses in the difficulties in getting her stabilized with regards to her sugars I feel it is best if she be referred to an manager cost. I am referring her to Dr. MINNA Moore in [place] for further evaluation and management of her diabetes. The patient states that she is switching her primary care physician and will choose 1 for follow-up. Total Time: 45 min Code: 39507 (>30min.) - Physical Exam Vital Signs: Last Vital Signs Temp 98.2 F 03/21/16 05:27 Pulse 83 03/21/16 05:27 Resp 18 03/21/16 05:27 BP 133/87 03/21/16 05:27 Pulse Ox 99 03/21/16 05:27 Oxygen Pulse Oxygen Saturation 99 O2 Device Room Air Oxygen Flow Rate Fraction of Inspired Oxygen ( FIO2) Constitutional: Distress Oriented to: Time, Person, Place - HEENT Head: Normal ( normocephalic) Eye: Normal (PERRL, EOMI, Sclera white) Oropharynx: Membranes Dry ENT EAC: Normal TMJ: Normal Nose: No Symptoms Reported (septum midline) - Respiratory/Cardiovascular Respiratory: Accessory Muscle Use, Tachypnea - GI Auscultation: Normal (NABS) Palpation: Normal (Soft,No rebound or guarding, non distended) Tenderness: Non tender Shields's Sign: Negative - Musculoskeletal Back: Normal (Non-Tender) Extremities: Normal (Normal tone, Pulses 2+ No cyanosis or edema, FROM) - Integumentary Lymphatics: Normal (no adenopathy) - Neurologic Memory Impaired: Normal Cerebellar: Normal Mood Description: Anxious Perception: Normal - Other Exam Other Exam Findings: Laboratory Results - last 24 hr 03/20/16 03/20/16 03/20/16 11:19 16:03 20:09 WBC RBC Hgb Hct MCV MCH MCHC RDW Plt Count MPV Neut % (Auto) Lymph % (Auto) [place] % (Auto) Eos % (Auto) Baso % (Auto) Absolute Neuts (auto) Absolute Lymphs (auto) Sodium Potassium Chloride Carbon Dioxide Anion Gap BUN Creatinine Estimated GFR (MDRD) Glucose POC Capillary Glucose 417 H* 247 H 118 H Calculated Osmolality Calcium 03/21/16 03/21/16 03/21/16 05:47 06:24 06:30 WBC 3.6 L RBC 4.06 L Hgb 12.1 Hct 34.2 L MCV 84 MCH 29.8 MCHC 35.4 RDW 13.3 Plt Count 153 MPV 8.6 Neut % (Auto) 34.2 L Lymph % (Auto) 51.2 H [place] % (Auto) 10.8 H Eos % (Auto) 3.0 Baso % (Auto) 0.8 Absolute Neuts (auto) 1.22 L Absolute Lymphs (auto) 1.84 Sodium Potassium Chloride Carbon Dioxide Anion Gap BUN Creatinine Estimated GFR (MDRD) Glucose POC Capillary Glucose 61 L 119 H Calculated Osmolality Calcium 03/21/16 06:30 WBC RBC Hgb Hct MCV MCH MCHC RDW Plt Count MPV Neut % (Auto) Lymph % (Auto) [place] % (Auto) Eos % (Auto) Baso % (Auto) Absolute Neuts (auto) Absolute Lymphs (auto) Sodium 137 Potassium 3.6 D Chloride 98 Carbon Dioxide 32 Anion Gap 11 BUN 4 L Creatinine 0.40 L Estimated GFR (MDRD) > 60 Glucose 107 H POC Capillary Glucose Calculated Osmolality 261 L Calcium 9.1
== END 2016-03-21 14:23 | disposition home or self-care (01) | DRG 639 ==
LOC: ED 18:06 → ICU 19:48 → MPS3 03-20 12:25
PROVIDERS: ADMIT Internal Medicine; ATTEND Hospitalist
DX: E13.10 Other specified diabetes mellitus with ketoacidosis without coma (principal); B96.89 Other specified bacterial agents as the cause of diseases classified elsewhere; J01.90 Acute sinusitis, unspecified; F41.9 Anxiety disorder, unspecified; G43.009 Migraine without aura, not intractable, without status migrainosus; J45.909 Unspecified asthma, uncomplicated; K21.9 Gastro-esophageal reflux disease without esophagitis; Z79.4 Long term (current) use of insulin; F41.8 Other specified anxiety disorders; Z88.0 Allergy status to penicillin; Z88.5 Allergy status to narcotic agent; F17.210 Nicotine dependence, cigarettes, uncomplicated
CPT/HCPCS: 36415; 71020; 80048; 80053; 81001; 81025; 82962; 83735; 84439; 84443; 84481; 85025; 87040; 87086; 87641; 94640; 96361; 96365; 96372; 96375; 99284; 99406; A4217; G0237; J0456; J0696; J1170; J1650; J1815; J2405; J2550; J3475; J3480; J3490; J7030; J7040; J7060; J7070